=== PATIENT | female | born 1945 | race Caucasian/White ===

== ENCOUNTER → 2017-06-13 15:40 | Outpatient (CLI) | payer MEDICARE, SELFPAY ==
[2017-06-13 17:00] LABS: Hemoglobin A1c 6.4 % (4.2-6.3)
== END ==
PROVIDERS: Family Provider Student in an Organized Health Care Education/Training Program; PCP Student in an Organized Health Care Education/Training Program; Visit Provider Student in an Organized Health Care Education/Training Program
DX: Z79.899 Other long term (current) drug therapy (principal)
CPT/HCPCS: 83036

== ENCOUNTER → 2017-12-15 14:49 | Outpatient (CLI) | payer MEDICARE, SELFPAY ==
[2017-12-15 15:55] LABS: Hemoglobin A1c 6.1 % (4.2-6.3)
[2017-12-15 15:59] LABS: Anion Gap 7 (5-15); BUN 13 mg/dL (7-18); BUN/Creat Ratio 18.5 RATIO (10-20); Calcium,Total 9.4 mg/dL (8.5-10.1); Chloride 109 mmol/L (98-107); Cholesterol 246 mg/dL (200); EST Glomerular Filtration Rate 87 mL/min (>60); Est Glom Filt Rate - Afr Amer 106 mL/min (>60); Glucose 94 mg/dL (74-106); High Density Lipoprotein 54 mg/dL; Sodium Level 142 mmol/L (136-145); Thyroid Stim Hormone (TSH) 1.24 uIU/mL (0.358-3.74); Triglycerides 230 mg/dL; Very Low Density Lipoprotein 46 mg/dL (5-40)
[2017-12-15 16:08] LABS: Microalbumin,Random Urine < 5.0 mg/L (NO RANGE EST.)
== END ==
PROVIDERS: Family Provider Student in an Organized Health Care Education/Training Program; PCP Student in an Organized Health Care Education/Training Program; Visit Provider Student in an Organized Health Care Education/Training Program
DX: Z79.899 Other long term (current) drug therapy (principal)
CPT/HCPCS: 80048; 80061; 82043; 82570; 83036; 84443

== ENCOUNTER → 2018-09-13 15:46 | Outpatient (CLI) | payer MEDICARE, SELFPAY ==
[2018-09-13 16:45] LABS: Hematocrit 40.1 % (37-47); Hemoglobin 13.2 g/dl (12.0-15.0); Mean Corp Hgb Conc 32.9 g/gl (32-36); Mean Corpuscular Hgb 31.4 pg (27.0-32.0); Mean Corpuscular Volume 95.5 fL (81-99); Mean Platelet Vol. 11.3 fl (6.2-12.0); Platelet Count 281 K/mm3 (150-450); RBC Distribution Width SD 48.9 fl (35.1-43.9); White Blood Count 7.9 K/mm3 (4.4-11.0)
[2018-09-13 16:54] LABS: Scan Indicated on CBC? Y/N NO
== END ==
PROVIDERS: Family Provider Student in an Organized Health Care Education/Training Program; PCP Student in an Organized Health Care Education/Training Program; Referring Provider Student in an Organized Health Care Education/Training Program; Visit Provider Student in an Organized Health Care Education/Training Program
DX: E11.9 Type 2 diabetes mellitus without complications (principal)
CPT/HCPCS: 85027

== ENCOUNTER → 2019-11-20 18:08 | Outpatient (CLI) | payer MEDICARE, SELFPAY | PROVIDERS: PCP Student in an Organized Health Care Education/Training Program; Referring Provider Nurse Practitioner Family; Visit Provider Nurse Practitioner Family | DX: Z20.828 Contact with and (suspected) exposure to other viral communicable diseases (principal) | CPT/HCPCS: 87635; 94799; U0003 ==

== ENCOUNTER → 2020-04-30 | Outpatient (CLI) | payer MEDICARE, SELFPAY ==
[2020-04-30 15:07] LABS: Absolute Lymphocyte Count 1.67 X10^3/uL (0.83-4.51); Basophil# 0.06 X10^3/uL; Basophil% 0.6 % (0-1); Eosinophils% 0.9 % (0-5); Hematocrit 41.5 % (37-47); Hemoglobin 13.5 g/dL (12.0-15.0); Lymphocyte # 1.67 X10^3/ul (4.0); Lymphocyte % 15.7 % (19-41); Mean Corp Hgb Conc 32.5 g/dL (32-36); Mean Corpuscular Hgb 30.1 pg (27.0-32.0); Mean Corpuscular Volume 92.6 fL (81-99); Mean Platelet Vol. 11.1 fl (6.2-12.0); Monocyte# 0.77 X10^3/uL; Monocyte% 7.2 % (0-10); NRBC Flagged by Analyzer 0 % (0-5); Neutrophil # 7.99 X10^3/uL (2.7-7.7); Neutrophil % 75.1 % (47-70); Platelet Count 286 K/mm3 (150-450); RBC Distribution Width CV 15.3 % (11.6-14.6); RBC Distribution Width SD 52.4 fl (35.1-43.9); Red Blood Count 4.48 M/mm3 (4.2-5.4); White Blood Count 10.6 K/mm3 (4.4-11.0)
[2020-04-30 15:18] LABS: Hemoglobin A1c 6.3 % (3.8-5.6)
[2020-04-30 15:19] LABS: AST(SGOT) 13 U/L (15-37); Alanine Aminotransfer ALT/SGPT 27 U/L (13-56); Albumin, Serum 3.8 g/dL (3.2-5.0); Alkaline Phosphatase 109 U/L (45-117); Anion Gap 4 (5-15); BUN 13 mg/dL (7-18); BUN/Creat Ratio 18.5 RATIO (10-20); Calcium,Total 9.8 mg/dL (8.5-10.1); Chloride 109 mmol/L (98-107); Cholesterol 245 mg/dL (200); EST Glomerular Filtration Rate 86 mL/min (>60); Est Glom Filt Rate - Afr Amer 105 mL/min (>60); Globulin 3.7 g/dL (2.2-4.2); Glucose 101 mg/dL (74-106); High Density Lipoprotein 57 mg/dL; Potassium 3.9 mmol/L (3.5-5.1); Protein, Total 7.5 g/dL (6.4-8.2); Sodium Level 140 mmol/L (136-145); Thyroid Stim Hormone (TSH) 2.13 uIU/mL (0.358-3.74); Triglycerides 305 mg/dL; Very Low Density Lipoprotein 61 mg/dL (5-40)
[2020-04-30 15:23] LABS: Microalbumin,Random Urine 14.4 mg/L (NO RANGE EST.); Microalbumin:Creatinine Ratio 17.5 mg/g CRE (<30 mg/g CRE)
== END | disposition home or self-care (01) ==
LOC: LABSPEC 14:22
PROVIDERS: PCP Student in an Organized Health Care Education/Training Program; Visit Provider Nurse Practitioner Family
DX: E11.9 Type 2 diabetes mellitus without complications (principal); I10 Essential (primary) hypertension; E78.49 Other hyperlipidemia; Z79.4 Long term (current) use of insulin; Z13.29 Encounter for screening for other suspected endocrine disorder
CPT/HCPCS: 80053; 80061; 82043; 82570; 83036; 84443; 85025

== ENCOUNTER 2020-06-19 06:40 | Outpatient (RCR) | payer MEDICARE, SELFPAY ==
[2020-06-19] MEDS: COVID-19 VACC, MRNA(PFIZER)/PF 30 MCG/0.3 ML SYRINGE IM (15:59)
[2020-07-10] MEDS: COVID-19 VACC, MRNA(PFIZER)/PF 30 MCG/0.3 ML SYRINGE IM (15:49)
== END 2020-09-16 23:59 ==
LOC: IMMUN 06:40
PROVIDERS: PCP Student in an Organized Health Care Education/Training Program; Referring Provider Family Medicine; Visit Provider Family Medicine
DX: Z23 Encounter for immunization (principal)
CPT/HCPCS: 0001A; 0002A; 91300

== ENCOUNTER 2023-04-15 08:56 | Outpatient (CLI) | payer MEDICARE, SELFPAY ==
[2023-04-15] VITALS (7 sets, daily range): BP systolic 109–123; BP diastolic 50–64; PULSE 67–76; RESP 16; TEMP 36–36.9; O2SAT 99–100; BMI 24.2
[2023-04-15] MEDS: Acetaminophen 500 MG Tablet 1000 MG PO (09:15)
[2023-04-15] MEDS: DiphenhydrAMINE 25 MG Capsule PO (09:15)
[2023-04-15] MEDS: 0.9% NaCl Peripheral Flush Adult/Peds IV (09:39)
[2023-04-15] MEDS: 0.9% Normal Saline (500mL Bag) 500 ML 15 ML IV (09:40)
== END 2023-04-15 08:57 | disposition home or self-care (01) ==
LOC: MEDOUTP 08:58
PROVIDERS: PCP Student in an Organized Health Care Education/Training Program; Referring Provider Nurse Practitioner Family; Visit Provider Nurse Practitioner Family
DX: R06.02 Shortness of breath (principal); D64.9 Anemia, unspecified; R79.89 Other specified abnormal findings of blood chemistry; E83.19 Other disorders of iron metabolism
CPT/HCPCS: 36430; 86850; 86900; 86901; 86920; 86922; J7040; P9016; A4216

== ENCOUNTER 2024-02-18 00:23 | Emergency (ER) | payer MEDICARE, SELFPAY ==
[2024-02-18] VITALS (13 sets, daily range): BP systolic 117–152; BP diastolic 57–102; PULSE 63–722; RESP 14–22; TEMP 35.9–36.7; O2SAT 94–99; BMI 22.9
[2024-02-18 00:45] LABS: Absolute Lymphocyte Count 1.65 X10^3/uL (0.83-4.51); Basophil# 0.05 X10^3/uL; Basophil% 0.6 % (0-1); Eosinophil# 0.14 X10^3/uL; Eosinophils% 1.5 % (0-5); Hematocrit 19.8 % (37-47); Lymphocyte # 1.65 X10^3/ul (0.83-4.51); Lymphocyte % 18.2 % (19-41); Mean Corp Hgb Conc 29.3 g/dL (32-36); Mean Corpuscular Hgb 27.9 pg (27.0-32.0); Mean Corpuscular Volume 95.2 fL (81-99); Mean Platelet Vol. 10.9 fl (6.2-12.0); Monocyte# 0.93 X10^3/uL; Monocyte% 10.3 % (0-10); NRBC Flagged by Analyzer 4.2 % (0-5); Neutrophil % 66.1 % (47-70); POSITIVE COUNT YES; POSITIVE MORPHOLOGY YES; Platelet Count 255 K/mm3 (150-450); RBC Distribution Width CV 26.3 % (11.6-14.6); Red Blood Count 2.08 M/mm3 (4.2-5.4); White Blood Count 9.1 K/mm3 (4.4-11.0)
[2024-02-18 00:48] LABS: Differential Indicated SCAN CRITERIA MET
[2024-02-18 00:55] LABS: Prothrombin Time (Protime)PT. 13.5 SECONDS (11.7-14.9)
[2024-02-18 00:56] LABS: Partial Thromboplast Time 27.9 Seconds (24.1-36.2)
[2024-02-18 01:02] LABS: AST(SGOT) 16 U/L (15-37); Alanine Aminotransfer ALT/SGPT 21 U/L (13-56); Albumin, Serum 3.2 g/dL (3.2-5.0); Alkaline Phosphatase 105 U/L (45-117); Anion Gap 4 (5-15); BUN 16 mg/dL (7-18); Bilirubin, Direct 0.07 mg/dL (0.00-0.30); Calcium,Total 9.2 mg/dL (8.5-10.1); Chloride 114 mmol/L (98-107); EST Glomerular Filtration Rate 86 mL/min (>60); Est Glom Filt Rate - Afr Amer 105 mL/min (>60); Estimated Creatinine Clearance 54.26 ml/min; Globulin 3.1 g/dL (2.2-4.2); Glucose 102 mg/dL (74-106); Potassium 3.8 mmol/L (3.5-5.1); Protein, Total 6.3 g/dL (6.4-8.2); Sodium Level 143 mmol/L (136-145)
[2024-02-18 01:36] LABS: Hemoglobin 5.8 g/dL (12.0-15.0)
[2024-02-18] MEDS: 0.9% Normal Saline (500mL Bag) 500 ML 999 ML IV (01:37)
[2024-02-18] MEDS: Pantoprazole Sodium 80 MG in 0.9% Normal Saline (50mL Bag) 15 ML 420 MG IV BOLUS (01:37)
[2024-02-18 01:43] LABS: Anisocytosis 2+; Polychromasia 2+
[2024-02-18] MEDS: Pantoprazole Sodium 80 MG in 0.9% Normal Saline (100mL Bag) 80 ML 10 MG CONT INF (01:44)
[2024-02-20 14:31] LABS: Pathologist Review Reviewed
== END 2024-02-18 07:35 | disposition home or self-care (01) ==
PROVIDERS: Emergency Provider Emergency Medicine; PCP Student in an Organized Health Care Education/Training Program; Visit Provider Emergency Medicine
DX: K92.2 Gastrointestinal hemorrhage, unspecified (principal); I10 Essential (primary) hypertension; D62 Acute posthemorrhagic anemia; F17.210 Nicotine dependence, cigarettes, uncomplicated; K21.9 Gastro-esophageal reflux disease without esophagitis; Z79.02 Long term (current) use of antithrombotics/antiplatelets; Z79.82 Long term (current) use of aspirin
CPT/HCPCS: 74174; 80048; 80076; 82274; 85025; 85610; 85730; 86850; 86900; 86901; 86920; 96365; 96375; 99283; J7040; P9016; Q9967; A4216; J3490

== ENCOUNTER → 2024-02-29 | Outpatient (CLI) | payer MEDICARE, SELFPAY ==
[2024-02-29 15:50] LABS: Absolute Lymphocyte Count 1.43 X10^3/uL (0.83-4.51); Absolute Neutrophil Count 5.8 X10^3/uL (2.0-7.7); Basophil# 0.15 X10^3/uL; Basophil% 1.8 % (0-1); Eosinophil# 0.13 X10^3/uL; Eosinophils% 1.5 % (0-5); Hematocrit 28.5 % (37-47); Hemoglobin 8.6 g/dL (12.0-15.0); Lymphocyte # 1.43 X10^3/ul (0.83-4.51); Lymphocyte % 16.9 % (19-41); Mean Corp Hgb Conc 30.2 g/dL (32-36); Mean Corpuscular Hgb 27.8 pg (27.0-32.0); Mean Corpuscular Volume 92.2 fL (81-99); Mean Platelet Vol. 9.9 fl (6.2-12.0); Monocyte# 0.91 X10^3/uL; Monocyte% 10.8 % (0-10); NRBC Flagged by Analyzer 0 % (0-5); Neutrophil # 5.79 X10^3/uL (2.7-7.7); Neutrophil % 68.4 % (47-70); POSITIVE COUNT YES; POSITIVE MORPHOLOGY YES; Platelet Count 536 K/mm3 (150-450); RBC Distribution Width CV 20.7 % (11.6-14.6); RBC Distribution Width SD 68.3 fl (35.1-43.9); Red Blood Count 3.09 M/mm3 (4.2-5.4); White Blood Count 8.5 K/mm3 (4.4-11.0)
[2024-02-29 16:13] LABS: Differential Indicated SCAN CRITERIA MET; Iron 14 ug/dL (50-170); Iron Binding Capacity,Total 579 ug/dL (250-450); RET-HE 19.5 pg (30-35)
[2024-02-29 16:14] LABS: Immature Platelet Fraction 3.5 % (1.0-7.9)
[2024-02-29 16:25] LABS: Differential Comment SCANNED; Hypochromasia 1+
[2024-02-29 16:26] LABS: Anisocytosis 2+
[2024-02-29 16:27] LABS: Polychromasia RARE
== END | disposition home or self-care (01) ==
LOC: LAB 15:38
PROVIDERS: PCP Student in an Organized Health Care Education/Training Program; Referring Provider Nurse Practitioner Acute Care; Visit Provider Nurse Practitioner Acute Care
DX: D64.9 Anemia, unspecified (principal); R10.12 Left upper quadrant pain; K25.9 Gastric ulcer, unspecified as acute or chronic, without hemorrhage or perforation
CPT/HCPCS: 36415; 83540; 83550; 85025; 85045

== ENCOUNTER 2024-03-17 10:52 | Outpatient (CLI) | payer MEDICARE, SELFPAY ==
[2024-03-17 11:13] LABS: Absolute Neutrophil Count 5.4 X10^3/uL (2.0-7.7); Basophil# 0.06 X10^3/uL; Basophil% 0.8 % (0-1); Eosinophil# 0.11 X10^3/uL; Eosinophils% 1.5 % (0-5); Hematocrit 20.4 % (37-47); Lymphocyte % 14.8 % (19-41); Mean Corp Hgb Conc 28.4 g/dL (32-36); Mean Corpuscular Hgb 24.9 pg (27.0-32.0); Mean Corpuscular Volume 87.6 fL (81-99); Mean Platelet Vol. 11.3 fl (6.2-12.0); Monocyte# 0.73 X10^3/uL; Monocyte% 9.8 % (0-10); NRBC Flagged by Analyzer 0.4 % (0-5); Neutrophil # 5.39 X10^3/uL (2.7-7.7); Neutrophil % 72.7 % (47-70); POSITIVE COUNT YES; POSITIVE MORPHOLOGY YES; Platelet Count 261 K/mm3 (150-450); RBC Distribution Width CV 21.7 % (11.6-14.6); RBC Distribution Width SD 67.5 fl (35.1-43.9); Red Blood Count 2.33 M/mm3 (4.2-5.4); White Blood Count 7.4 K/mm3 (4.4-11.0)
[2024-03-17 11:29] LABS: Differential Indicated SCAN CRITERIA MET; Hemoglobin 5.8 g/dL (12.0-15.0)
[2024-03-17 12:07] LABS: Anisocytosis 2+; Differential Comment SCANNED; Hypochromasia 3+; Platelet Estimate ADEQUATE (ADEQ); Polychromasia 1+
[2024-03-17 12:08] LABS: Acanthocytes RARE; Microcytosis 2+; Ovalocyte 2+; Schistocytes RARE; Target Cells 1+
[2024-03-19 14:40] LABS: Pathologist Review Reviewed
== END 2024-03-17 23:59 | disposition home or self-care (01) ==
LOC: MEDOUTP 10:53
PROVIDERS: Nurse Practitioner Acute Care; PCP Student in an Organized Health Care Education/Training Program; Referring Provider Internal Medicine; Visit Provider Internal Medicine
DX: D64.9 Anemia, unspecified (principal)
CPT/HCPCS: 36415; 85025; 86850; 86900; 86901; 86920; 86922

== ENCOUNTER 2024-03-17 12:38 | Emergency (ER) | payer MEDICARE, SELFPAY ==
[2024-03-17] VITALS (12 sets, daily range): BP systolic 100–130; BP diastolic 61–96; PULSE 71–92; RESP 16–20; TEMP 33.3–36.9; O2SAT 97–100; BMI 23.2
--- NOTE | 2024-03-17 12:44 | EX.ED.DYSGE1 ---
HPI History of Present Illness Chief Complaint: Abn Labs [facility] Medical History no medical history Home Medications ?Medication ?Instructions ?Recorded ?Last Taken ?Type L.acidoph, paracasei,B. lactis 10 1 ea PO DAILY 07/27/15 Unknown History billion cell capsule clopidogrel 75 mg tablet 75 mg PO DAILY #30 TABLETS 07/28/15 Unknown Rx losartan 100 mg tablet (Cozaar) 100 mg PO DAILY 04/15/23 Unknown History metoprolol succinate 25 mg 25 mg PO DAILY 04/15/23 Unknown History tablet,extended release 24 hr sucralfate 1 gram tablet 1 g PO 4X/DAY 02/18/24 Unknown History pantoprazole 20 mg tablet,delayed 40 mg PO QHS 02/29/24 Unknown History release furosemide 20 mg tablet (Lasix) 20 mg PO DAILY 3 days #3 tabs 03/17/24 Unknown Rx Allergy/AdvReac Type Severity Reaction Status Date / Time No Known Allergies Allergy Verified 03/17/24 12:39 Social History Smoking Status: Light Smoker (<10/day) EXAM Physical Exam Const Vital Signs: 03/17/24 12:39 03/17/24 12:49 03/17/24 14:35 Temperature 92 F L Temperature Source Temporal Pulse Rate 92 84 Respiratory Rate 16 19 H Respiratory Effort Non-Labored Short of Breath Respiratory Pattern Normal Blood Pressure 130/65 H 112/96 H Blood Pressure Mean 86 101 Blood Pressure Source Pulse Ox 100 98 Oxygen Delivery Method Room Air Room Air 03/17/24 14:55 03/17/24 15:10 03/17/24 16:10 Temperature 98.1 F 98.2 F 98.5 F Temperature Source Oral Oral Oral Pulse Rate 82 79 84 Respiratory Rate 20 H 20 H 20 H Respiratory Effort Respiratory Pattern Blood Pressure 103/61 115/77 118/66 Blood Pressure Mean 75 89 83 Blood Pressure Source Monitor Monitor Monitor Pulse Ox 99 99 98 Oxygen Delivery Method Room Air Room Air Room Air 03/17/24 16:44 03/17/24 16:48 03/17/24 17:03 Temperature 98 F 98.2 F 98.2 F Temperature Source Oral Oral Oral Pulse Rate 90 82 71 Respiratory Rate 18 19 H 19 H Respiratory Effort Respiratory Pattern Blood Pressure 129/88 H 112/79 100/78 Blood Pressure Mean 101 90 85 Blood Pressure Source Monitor Monitor Pulse Ox 99 98 97 Oxygen Delivery Method Room Air Room Air 03/17/24 18:03 03/17/24 18:34 03/17/24 18:51 Temperature 98.3 F 98.3 F 98.2 F Temperature Source Oral Oral Pulse Rate 81 82 82 Respiratory Rate 20 H 19 H 18 Respiratory Effort Respiratory Pattern Blood Pressure 120/72 115/76 115/77 Blood Pressure Mean 88 89 89 Blood Pressure Source Monitor Pulse Ox 97 98 97 Oxygen Delivery Method Room Air Room Air [facility] [place] N[place] Medical decision making narrative: HISTORY OF PRESENT ILLNESS: 79-year-old female presents with concern for low hemoglobin. She does note shortness of breath. Denies syncope. Chest pain. Palpitations. Denies melena, hematochezia, hemoptysis, hematuria. REVIEW OF SYSTEMS: Pertinent positives: Low hemoglobin, shortness of breath, Pertinent negatives: Chest pain, syncope, melena, hematochezia, hemoptysis, hematemesis, hematuria PHYSICAL EXAM: Nursing triage notes reviewed, Vital signs reviewed Constitutional: please see [facility] HENT: MMM, mucosal pallor noted Eyes: Pupils equal round and reactive to light, Extraocular muscles intact Neck: No stridor, no JVD, full neck ROM Lungs: Clear to auscultation, No wheezing or rales. No increased work of breathing, no conversational dyspnea, no accessory muscle use, no nasal flaring. No respiratory distress noted Heart: Regular rate and rhythm, No murmurs, No rubs and No gallops, 2+ distal pulses (radial, femoral, posterior tibial) in all extremities Abdomen: Soft, there is no tenderness, rigidity, rebound or guarding, no obvious peritoneal signs, no palpable pulsatile abdominal masses, no auscultated abdominal bruit : No CVAT Extremities: No edema Neuro: No new focal neurological deficits, cranial nerves II through XII intact, 5/5 strength in all present extremities. Intact sensation to light touch in all present extremities, 2+ reflexes bilateral patella tendons. Skin: No rash or lesions noted skin pallor noted MEDICAL DECISION MAKING: Chief Complaint: Low hemoglobin External records reviewed: Laboratory studies reviewed. Hemoglobin from today shows hemoglobin 5.8, white blood cell count 7.4 plate count 261. Reviewed last GI note. Saw was evaluated by gastroenterology on February 29, 2024. Reviewed EGD study report from that time which showed multiple short ulceration of the entire stomach body and duodenal erosions and erythema. She is negative for H. pylori at that time. Reviewed CTA from 02/18/2024 shows no active GI bleeding. Factors affecting care: History of hypertension, GERD, peptic ulcer disease, anemia Social determinants of health: none History obtained from others: The patient's history Consults: Gastroenterology MDM Narrative: The patient was initially hemodynamically stable, afebrile and nontoxic-appearing. Exam without focal lung findings. Appears nonhypoxic. He did. Pale Given hemoglobin of 5.8 I ordered 2 units of blood. I also ordered additional labs images to further assess patient complaint of shortness of breath. While is likely secondary to anemia wanted to rule out signs of pneumonia, heart failure, arrhythmia, ACS or electrolyte disturbance. ALL IMAGES (IF OBTAINED) HAVE BEEN PERSONALLY REVIEWED AND INTERPRETED BY MYSELF. EKG with normal sinus rhythm rate of 85, left activation, no intervals, QTc of 437 no STEMI High-sensitivity troponin is negative, no evidence of myocardial ischemia CBC with marked anemia, no leukocytosis or thrombocytopenia noted BMP without evidence of significant electrolyte abnormalities, no anion gap, no acute kidney injury. Chest x-ray was read reviewed, interpreted by myself showed no evidence of pneumonia, pneumothorax, I do not see any significant volume overload. It was read by radiologist as interstitial edema. Given initial edema BNP was ordered. BNP was elevated slightly at 194. Given concern for additional volume overload I gave the patient 20 mg IV Lasix given were given her 2 units of blood. Patient did ambulate in ED without septic hypoxia. Will prescribe 3 days of Lasix for further diuresis. Do not suspect her symptoms are related to heart failure despite elevated BNP as she did not display symptoms of volume overload. I suspect her shortness of breath and dyspnea on exertion are related to severe anemia. Type and screen sent. I discussed case with the GI doctor on-call Dr. Stout. Spoke with Dr. Stout. He felt patient could be followed up promptly in the next 1 to 2 days. He will call his office to try to expedite an appointment. Encourage patient to call as well to assure appointment is available. He did not thing the patient to be admitted at this time. Recommended transfusing the patient with 2 units of blood and discharging. Patient was transfused 2 units of blood. Remained hemodynamically stable. She is appropriate discharge home. The patient and/or family, caregivers express understanding. The patient and/or family, caregivers agrees with the plan. Shared decision making: I will have a discussion with the patient and or visitors regarding risk/benefits of further testing or admission. They will be made aware of of the risk/benefits inherent in this decision they will be given the opportunity to voice understanding. Total critical care time today provided was at least 60 minutes. This excludes separately billable procedures. Critical care time (if documented) is secondary to the patient having high probability of clinically significant/life threatening deterioration in the patient's condition which required my urgent intervention. Impression: 1. Acute anemia 2. History of anemia 3. History of antiplatelet therapy Dispo: Discharge home This note was generated with [employer] dictation software. It may contain incorrect words, spelling, and punctuation that were not noted in review of the chart prior to signing. Lab Data Labs: Laboratory Results - last 24 hr 03/17/24 13:09 WBC 7.5 RBC 2.36 L Hgb 5.9 L* Hct 20.7 L MCV 87.7 MCH 25.0 L MCHC 28.5 L RDW Std Deviation 67.0 H RDW Coeff of Amada 21.6 H Plt Count 252 MPV 11.4 Immature Gran % (Auto) 0.700 Neut % (Auto) 75.3 H Lymph % (Auto) 14.2 L [place] % (Auto) 8.2 Eos % (Auto) 0.9 Baso % (Auto) 0.7 Absolute Neuts (auto) 5.6 Absolute Lymphs (auto) 1.06 Nucleated RBC % 0.3 Differential Comment SCANNED Diff Path Review May foll Platelet Estimate ADEQUATE Polychromasia 1+ Hypochromasia 3+ Anisocytosis 2+ Microcytosis 2+ Target Cells RARE Tear Drop Cells 1+ Ovalocytes 2+ Acanthocytes (Spur) RARE Sodium 140 Potassium 3.8 Chloride 111 H Carbon Dioxide 26.0 Anion Gap 4 L BUN 18 Creatinine 0.83 Estim Creat Clear Calc 52.29 Est GFR (MDRD) Af Amer 86 Est GFR (MDRD) Non-Af 71 BUN/Creatinine Ratio 21.8 H Glucose 111 H Calcium 9.6 Troponin I High Sens < 3 L B-Natriuretic Peptide 194.4 H Blood Type O NEGATIVE Antibody Screen NEGATIVE Crossmatch See Detail Radiography Diagnostic Testing: Clinical Impression(s) from Imaging Studies Chest X-Ray 03/17/24 13:20 IMPRESSION: Mild pulmonary venous congestion. Electronically Signed: Messi Blank MD at 14:49 EST , Discharge Plan Triage Chief Complaint: Abn Labs ED Provider: Jose Angel Winkler Dx/Rx/DC Orders Clinical Impression: Anemia Instructions: ED Anemia, Type Not Specified (Adult) Prescriptions: New furosemide [Lasix] 20 mg tablet 20 mg PO DAILY 3 Days Qty: 3 0RF No Action pantoprazole 20 mg tablet,delayed release (DR/EC) 40 mg PO QHS L.acidoph, paracasei,B. lactis 1 EACH capsule 1 ea PO DAILY Patient Comments: STOMACH clopidogrel 75 MG tablet 75 mg PO DAILY Qty: 30 2RF losartan [Cozaar] 100 mg tablet 100 mg PO DAILY metoprolol succinate 25 mg tablet extended release 24 hr 25 mg PO DAILY sucralfate 1 gram tablet 1 g PO 4X/DAY Primary Care Provider: Hitesh Melton Referrals: Hitesh Melton MD [Primary Care Provider] - Activity Restrictions/Additional Instructions: Thank you for trusting us with your care today! You been diagnosed with anemia. Is likely coming from your GI tract. You need an endoscopy. I did speak with Dr. Stout who encouraged her to follow with his office on Tuesday or Tuesday. Please call his office Tuesday to assess status of appointment and get more accurate scheduling information. Please hold Plavix until you follow-up with Dr. Stout. There was some signs in your x-ray of increased fluid on your lungs. Please take prescribed Lasix daily for next 3 days. This will increase your urination which will limit fluid from your lungs. Please return to the emergency department if your symptoms change or worsen. Specifically develop worsening shortness of breath, heavy bleeding, if you lose consciousness. Please follow with gastroenterology (Dr. Stout) for further outpatient evaluation and management. Please call his office Tuesday to ascertain the time and place for your expedited appointment Print Language: Uzbek Disposition Disposition: Home, Self Care Discharge Date/Time: 03/17/24 18:51
--- NOTE | 2024-03-17 13:03 | EKG12_ITS ---
Test Reason : GENERAL Blood Pressure : */* mmHG Vent. Rate : 85 BPM Atrial Rate : 85 BPM P-R Int : 156 ms QRS Dur : 84 ms QT Int : 368 ms P-R-T Axes : 48 -15 20 degrees QTcB Int : 437 ms Normal sinus rhythm Normal ECG Confirmed by Jeremy Dozier [id number]), design editor MICHELLE COLLINS ([id number]) on 03/19/2024 6:58:39 AM Referred By: Confirmed By: Jeremy Dozier
--- NOTE | 2024-03-17 13:15 | ED.RN ---
Patient given warm blanket and socks per request
--- NOTE | 2024-03-17 13:20 | RAD_ITS ---
INDICATION: SOB EXAMINATION/TECHNIQUE: X-RAY - XR Chest 1 View COMPARISON: No relevant prior comparison study available FINDINGS: LINES/DEVICES: None. LUNGS: Mild prominence of the pulmonary vasculature. No focal infiltrate is seen. No evidence of pleural effusions. MEDIASTINUM AND CARDIOVASCULAR STRUCTURES: Cardiac silhouette not enlarged. Central airways and mediastinal contour are unremarkable. BONES AND SOFT TISSUES: Unremarkable. RAD/Chest 1 View (Portable) IMPRESSION: Mild pulmonary venous congestion. Electronically Signed: Messi Blank MD at 14:49 EST ,
[2024-03-17 13:24] LABS: Absolute Lymphocyte Count 1.06 X10^3/uL (0.83-4.51); Absolute Neutrophil Count 5.6 X10^3/uL (2.0-7.7); Basophil# 0.05 X10^3/uL; Basophil% 0.7 % (0-1); Eosinophil# 0.07 X10^3/uL; Eosinophils% 0.9 % (0-5); Hematocrit 20.7 % (37-47); Lymphocyte # 1.06 X10^3/ul (0.83-4.51); Lymphocyte % 14.2 % (19-41); Mean Corp Hgb Conc 28.5 g/dL (32-36); Mean Corpuscular Volume 87.7 fL (81-99); Mean Platelet Vol. 11.4 fl (6.2-12.0); Monocyte# 0.61 X10^3/uL; Monocyte% 8.2 % (0-10); NRBC Flagged by Analyzer 0.3 % (0-5); Neutrophil # 5.62 X10^3/uL (2.7-7.7); Neutrophil % 75.3 % (47-70); POSITIVE COUNT YES; POSITIVE MORPHOLOGY YES; Platelet Count 252 K/mm3 (150-450); RBC Distribution Width CV 21.6 % (11.6-14.6); Red Blood Count 2.36 M/mm3 (4.2-5.4); White Blood Count 7.5 K/mm3 (4.4-11.0)
[2024-03-17 13:26] LABS: Differential Indicated SCAN CRITERIA MET; Hemoglobin 5.9 g/dL (12.0-15.0)
[2024-03-17 13:40] LABS: Anion Gap 4 (5-15); BUN 18 mg/dL (7-18); BUN/Creat Ratio 21.8 RATIO (10-20); Calcium,Total 9.6 mg/dL (8.5-10.1); Chloride 111 mmol/L (98-107); Creatinine, Serum 0.83 mg/dL (0.55-1.02); EST Glomerular Filtration Rate 71 mL/min (>60); Est Glom Filt Rate - Afr Amer 86 mL/min (>60); Estimated Creatinine Clearance 52.29 ml/min; Glucose 111 mg/dL (74-106); Potassium 3.8 mmol/L (3.5-5.1); Sodium Level 140 mmol/L (136-145); Troponin-I HS < 3 pg/mL (3.0-54.0)
[2024-03-17 13:57] LABS: Differential Comment SCANNED; Platelet Estimate ADEQUATE (ADEQ)
[2024-03-17 13:58] LABS: Acanthocytes RARE; Anisocytosis 2+; Hypochromasia 3+; Microcytosis 2+; Ovalocyte 2+; Polychromasia 1+
[2024-03-17 13:59] LABS: Target Cells RARE; Tear Drop Cell 1+
[2024-03-17 15:39] LABS: BNP,B-Type NATRIURETIC PEPTIDE 194.4 pg/mL (0-100)
[2024-03-17] MEDS: Furosemide 20 MG/2 ML VIAL IV (16:10)
[2024-03-19 14:40] LABS: Pathologist Review Reviewed
== END 2024-03-17 18:51 | disposition home or self-care (01) ==
PROVIDERS: Emergency Provider Emergency Medicine; PCP Internal Medicine; Visit Provider Emergency Medicine
DX: D64.9 Anemia, unspecified (principal); I10 Essential (primary) hypertension; R00.2 Palpitations; R06.02 Shortness of breath; F17.200 Nicotine dependence, unspecified, uncomplicated
CPT/HCPCS: 36430; 71045; 80048; 83880; 84484; 85025; 86850; 86900; 86901; 86920; 86922; 93005; 99284; P9016; J1940

== ENCOUNTER → 2024-03-20 | Outpatient (CLI) | payer MEDICARE, SELFPAY ==
[2024-03-20 14:12] LABS: Absolute Lymphocyte Count 1.11 X10^3/uL (0.83-4.51); Absolute Neutrophil Count 6.4 X10^3/uL (2.0-7.7); Basophil# 0.06 X10^3/uL; Basophil% 0.7 % (0-1); Eosinophil# 0.08 X10^3/uL; Eosinophils% 0.9 % (0-5); Hematocrit 27.5 % (37-47); Hemoglobin 8.4 g/dL (12.0-15.0); Lymphocyte # 1.11 X10^3/ul (0.83-4.51); Lymphocyte % 13.1 % (19-41); Mean Corp Hgb Conc 30.5 g/dL (32-36); Mean Corpuscular Hgb 26.3 pg (27.0-32.0); Mean Corpuscular Volume 86.2 fL (81-99); Mean Platelet Vol. 12.3 fl (6.2-12.0); Monocyte% 9.5 % (0-10); NRBC Flagged by Analyzer 0 % (0-5); Neutrophil # 6.36 X10^3/uL (2.7-7.7); Neutrophil % 75.2 % (47-70); POSITIVE MORPHOLOGY YES; Platelet Count 245 K/mm3 (150-450); RBC Distribution Width CV 20.8 % (11.6-14.6); RBC Distribution Width SD 61.6 fl (35.1-43.9); Red Blood Count 3.19 M/mm3 (4.2-5.4); White Blood Count 8.5 K/mm3 (4.4-11.0)
[2024-03-20 14:14] LABS: Differential Indicated SCAN CRITERIA MET
[2024-03-20 14:39] LABS: Anisocytosis 2+; Hypochromasia 1+
== END | disposition home or self-care (01) ==
PROVIDERS: PCP Internal Medicine; Referring Provider Nurse Practitioner Acute Care; Visit Provider Nurse Practitioner Acute Care
DX: D64.9 Anemia, unspecified (principal)
CPT/HCPCS: 36415; 85025

== ENCOUNTER 2024-03-23 05:23 | Day surgery (SDC) | payer MEDICARE, SELFPAY ==
[2024-03-23] VITALS (10 sets, daily range): BP systolic 80–136; BP diastolic 50–104; PULSE 59–87; RESP 14–18; TEMP 36.3–36.7; O2SAT 92–99; BMI 22.4
--- NOTE | 2024-03-23 06:30 | IMM_PTH ---
PATIENT: SILVINA NELSON LOC: EN U#:[id number] AGE/SX: 79/F ROOM: RE03/23/[address]: Dr. Roby Stout DO : 1945 BED: DIS: 03/23/2024 SPEC #: [id number] RECD: 03/23/24 12:01 STATUS: DANUTA REQ #: [id number] ANDREW: 03/23/24 06:[address]: Roby Stout DEPT: IMMUNOHISTOCHEMISTRY RECD BY: Kobi Ch ENTERED: 03/23/24 12:01 SP TYPE: IMMUNO OTHR DR: Dr. Hitesh Melton MD Tissues: B - Gastric mucous membrane Procedures: H Pylori (initial) [facility]YSIC[facility] INSTIT[facility] [address] [address] SPECIMEN INFORMATION: Tissue Source: B- Gastric ulcer biopsy Clinical Info: Anemia, left upper quadrant pain, gastric ulcer Specimen Number: [id number] CPT code: 05535 METHODOLOGY: Deparaffinized sections of prefer/formalin-fixed tissue or PAP/DQ stained slides are incubated with monoclonal/polyclonal antibodies/oligonucleotide probes. Localization is made via biotin free immunoperoxidase method. Appropriate controls are performed and reacted as expected. Results on target cell population are indicated in the following table: RESULTS: ANTIBODY / CLONE RESULT Block B H Pylori (polyclonal) negative These tests were developed and their performance characteristics determined by [facility]. They may not have been cleared or approved by the U.S. Food and Drug Administration. The FDA has determined that such clearance or approval is not necessary. The above immunohistochemical/dualISH markers are ordered and reviewed by the Pathologist. INTERPRETATION: B. Gastric ulcer, biopsy: Negative for Helicobacter pylori organisms. 03/26/2024
--- NOTE | 2024-03-23 06:30 | EGD_PTH ---
PATIENT: SILVINA NELSON LOC: EN U#:[id number] AGE/SX: 79/F ROOM: RE03/23/[address]: Dr. Roby Stout DO : 1945 BED: DIS: 03/23/2024 SPEC #: [id number] RECD: 03/23/24 10:43 STATUS: DANUTA REOlu #: [id number] ANDREW: 03/23/24 06:[address]: Roby Stout DEPT: SURGICAL PATHOLOGY RECD BY: Radha Melo ENTERED: 03/23/24 12:09 SP TYPE: EGD BIOPSY SIS DR: Dr. Hitesh Melton MD Tissues: A - Duodenum, NOS B - Gastric mucous membrane Procedures: Surgery Specimen Level IV HEADER OPERATION: EGD with biopsies PRE-OP DIAGNOSIS: Anemia, left upper qaudrant pain, gastric ulcer TISSUE SUBMITTED: A- Duodenum biopsy, B- Gastric ulcer biopsy MICROSCOPIC DIAGNOSIS A. Duodenum, biopsy: Fragments of duodenal mucosa with mild non-specific chronic inflammation. B. Gastric ulcer, biopsy: Fragments of gastric mucosa with superficial erosion, acute and chronic inflammation. See comment. 03/26/2024 COMMENT B. The results of immunohistochemistry for Helicobacter pylori will be reported separately ([id number]). MICROSCOPIC DESCRIPTION Slides are reviewed. GROSS DESCRIPTION A. Received in fixative is one container labeled with the patient's name and designated Duodenum biopsy. The specimen consists of multiple irregular fragments of meyer soft tissue that in aggregate measure 4.0mm. The specimen is totally submitted in one cassette. B. Received in fixative is one container labeled with the patient's name and designated Gastric ulcer biopsy. The specimen consists of multiple irregular fragments of meyer soft tissue that in aggregate measure 5.0mm. The specimen is totally submitted in one cassette. GLENIS. 03/23/2024 TC:3 CPT:02231h9
--- NOTE | 2024-03-23 06:30 | PCM.PRE.AN2 ---
ASA Classification* ASA Classification ASA Classification: 2 Assessment & Plan Anesthesia* Anesthesia Assessment Anesthesia Assessment: Discussed sedation and/or anesthesia options, risks, benefits, and alternatives with patient/parents/legal guardian/POA. Questions invited. The patient/parents/legal guardian/POA seems to understand and agrees to proceed with anesthesia plan. Reviewed the physical assessment, medical history, allergy history and patient home medications list prior to surgery/procedure/anesthetic and documented any changes. Performed airway and anesthesia risk assessments. Anesthesia Type Anesthesia Type: MAC History Source History Obtained from:: Patient and Chart Anesthesia Focused Assessment* Temperature: 97.5 F Pulse Rate: 87 Blood Pressure: 121/76 Respiratory Rate: 18 Pulse Ox: 99 Airway Assessment Mouth opens: >3 cm Mallampati Score: II Neck Range of motion (ROM): Full ROM Focused Labs Anesthesia Preop lab: CBC WBC 8.5 K/mm3 (4.4-11.0) 03/20/24 14:01 RBC 3.19 M/mm3 (4.2-5.4) L 03/20/24 14:01 Hgb 8.4 g/dL (12.0-15.0) L 03/20/24 14:01 Hct 27.5 % (37-47) L 03/20/24 14:01 Plt Count 245 K/mm3 (150-450) 03/20/24 14:01 CHEMISTRY Potassium 3.8 mmol/L (3.5-5.1) 03/17/24 13:09 Sodium 140 mmol/L (136-145) 03/17/24 13:09 Magnesium 2.0 mg/dL (1.8-2.4) 07/28/15 02:30 BUN 18 mg/dL (7-18) 03/17/24 13:09 Creatinine 0.83 mg/dL (0.55-1.02) 03/17/24 13:09 Glucose 111 mg/dL (74-106) H 03/17/24 13:09 TSH 2.13 uIU/mL (0.358-3.74) 04/30/20 13:00 COAG PT 13.5 SECONDS (11.7-14.9) 02/18/24 00:37 Pre-Assessment Diagnosis/Proposed Procedure Planned Operative Procedure(s): EGD Anesthesia History 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 When Was Last Pacemaker Check QUESTION #4 FULL TEXT: You/Your Family Experience fever (hyperthermia) with Anesthesia Last Oral Intake Last Oral intake: Last Oral Intake NPO since Meds taken in AM with sips of No 03/23/24 05:46 water? 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 Female Yes 03/20/24 10:37 HX of Motion Sickness No 03/20/24 10:37 HX of N/V After Surgery No 03/20/24 10:37 Non-Smoker No 03/20/24 10:37 Duration of Surgery greater No 03/20/24 10:37 than 60 minutes Number of Risk Factors 1 03/20/24 10:37 PONV Score Low Risk 03/20/24 10:37 Height & Weight Height & Weight: Anesthesia: Height & Weight Height 5 ft 6 in 03/23/24 05:46 Weight: 63 kg 03/23/24 05:46 Body Mass Index (BMI) 22.4 03/23/24 05:46 Respiratory Assessment Respiratory Assessment - fabric coating supervisor: Respiratory Tract Infection Hx - fabric coating supervisor Hx Respiratory Tract Infection No 03/20/24 10:37 STOP Sleep Apnea STOP Sleep Apnea - fabric coating supervisor: STOP Sleep Apnea - fabric coating supervisor Hx Hypertension Yes 03/20/24 10:37 Hx Sleep Apnea No 03/20/24 10:37 CPAP BIPAP Do you snore loudly (louder No 03/20/24 10:37 than talking or can be heard Do you often feel tired/ No 03/20/24 10:37 fatigued/ sleepy during daytime? Has anyone observed you stop No 03/20/24 10:37 breathing during sleep? STOP Results Negative 03/20/24 10:37 QUESTION #5 FULL TEXT : Do you snore loudly (louder than talking or can be heard through closed doors)? 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 Specify any problems Hx of Preganancy in last 3 No 03/20/24 10:37 Months Nurse Filling Out Transfusion [facility] 03/20/24 10:37 & Questions: Date: 03/20/24 03/20/24 10:37 Time: 10:40 03/20/24 10:37 Patient unable to answer at this time (ie. confused, unrespo /Reproduction History /Reproductive History - fabric coating supervisor: /Reproductive Hx- fabric coating supervisor Hx Now No 03/20/24 10:37 Gestational Age (in weeks): EDC: Hx Hx Para Hx Section SAB PFSH Medical History Neck pain Wears glasses Anxiety Arthritis Leg cramps Restless legs TIA (transient ischemic attack) History of ulceration History of GI bleed Smoker Shortness of breath on exertion History of pain when walking History of echocardiogram Home Medications ?Medication ?Instructions ?Recorded ?Last Taken ?Type L.acidoph,paracasei,B.animalis 10 1 ea PO DAILY 07/27/15 Unknown History billion cell capsule clopidogrel 75 mg tablet 75 mg PO DAILY #30 TABLETS 07/28/15 03/17/24 Rx losartan 100 mg tablet (Cozaar) 100 mg PO DAILY 04/15/23 03/22/24 History metoprolol succinate 25 mg 25 mg PO DAILY 04/15/23 03/22/24 History tablet,extended release 24 hr sucralfate 1 gram tablet 1 g PO TID 02/18/24 Unknown History pantoprazole 20 mg tablet,delayed 40 mg PO QHS 02/29/24 Unknown History release furosemide 20 mg tablet (Lasix) 20 mg PO DAILY 3 days #3 tabs 03/17/24 Unknown Rx cholecalciferol (vitamin D3) 125 125 mcg PO DAILY 03/20/24 Unknown History mcg (5,000 unit) tablet (Vitamin D3) vitamin B12 1,000 mcg-folic acid 1 flaco sublingual DAILY 03/20/24 Unknown History 400 mcg sublingual lozenge Allergy/AdvReac Type Severity Reaction Status Date / Time No Known Allergies Allergy Verified 03/23/24 05:41 Surgical History (Updated 03/20/24 @ 10:51 by Fouzia Hawkins) History of colonoscopy History of esophagogastroduodenoscopy (EGD) Social History Smoking Status: Light Smoker (<10/day) Review of Systems (Anesthesia) ROS Narrative System reviewed and no additional complaints, except as documented.
--- NOTE | 2024-03-23 06:42 | PCM.HP.STD ---
HPI - General General Date of Admission: 03/23/24 Date of Service: 03/23/24 Chief Complaint: Anemia HPI Narrative SILVINA NELSON, is a 79 F who [id number] female presents for consultation. She was seen in the ED on 02/18/2024 for HGB of 5.8 with c/o fatigue. She reported dark colored stools in ED and takes Fe daily. She was transfused 2u PRBC and CTA was negative for cause of bleeding. She reports a history of GIB secondary to . She declined admission and was discharged with recommendation to hold plavix. She denies taking ASA and reports she did not hold plavix as recommended. EGD (multiple shallow ulcerations entire stomach body, duodenal erosions and erythema) & COLON (diverticulosis) (Tavia) biopsies negative H. pylori LABS 02/18/2024 HGB 5.8 12/21/223 HGB 12.1 PLAVIX, PANTOPRAZOLE 40MG QD, CARAFATE 1G TID Abdomen/Pelvis CTA 02/18/24 00:50 IMPRESSION: 1. No active gastrointestinal bleeding or other acute findings identified on this CTA exam. CTA can be insensitive for identifying some gastrointestinal bleeds, consider follow-up with nuclear medicine tagged RBC scan or endoscopy if clinically indicated. 2. Multiple partially calcified uterine fibroids measuring up to 2.7 cm. 3. There is an irregularly enhancing, indeterminate left adrenal mass measuring 2.5 cm with Hounsfield units of 87 on this postcontrast exam. ACR White Paper guidelines (Donald et al. JACR 2017; 14(8):6241-9295) suggest a low dose, non-contrast adrenal CT or chemical-shift adrenal MRI follow-up study. Consider follow-up biochemical evaluation and/or endocrine consult to assess for biochemically functional versus nonfunctional lesion. [facility] Medical History Neck pain Wears glasses Anxiety Arthritis Leg cramps Restless legs TIA (transient ischemic attack) History of ulceration History of GI bleed Smoker Shortness of breath on exertion History of pain when walking History of echocardiogram Home Medications ?Medication ?Instructions ?Recorded ?Last Taken ?Type L.acidoph,paracasei,B.animalis 10 1 ea PO DAILY 07/27/15 Unknown History billion cell capsule clopidogrel 75 mg tablet 75 mg PO DAILY #30 TABLETS 07/28/15 03/17/24 Rx losartan 100 mg tablet (Cozaar) 100 mg PO DAILY 04/15/23 03/22/24 History metoprolol succinate 25 mg 25 mg PO DAILY 04/15/23 03/22/24 History tablet,extended release 24 hr sucralfate 1 gram tablet 1 g PO TID 02/18/24 Unknown History pantoprazole 20 mg tablet,delayed 40 mg PO QHS 02/29/24 Unknown History release furosemide 20 mg tablet (Lasix) 20 mg PO DAILY 3 days #3 tabs 03/17/24 Unknown Rx cholecalciferol (vitamin D3) 125 125 mcg PO DAILY 03/20/24 Unknown History mcg (5,000 unit) tablet (Vitamin D3) vitamin B12 1,000 mcg-folic acid 1 flaco sublingual DAILY 03/20/24 Unknown History 400 mcg sublingual lozenge Allergy/AdvReac Type Severity Reaction Status Date / Time No Known Allergies Allergy Verified 03/23/24 05:41 Surgical History History of colonoscopy History of esophagogastroduodenoscopy (EGD) Social History Smoking Status: Light Smoker (<10/day) ROS Constitutional Constitutional: Denies fatigue, fever(s), poor appetite, weight gain or weight loss Gastrointestinal Gastrointestinal: Denies belching, bloating, change in bowel habits, change in stool character, chewing difficulty, coffee ground emesis, constipation, cramping, diarrhea, dyspepsia, dysphagia, early satiety, excessive flatus, fecal incontinence, heartburn, hematemesis, hematochezia, hemorrhoids, loose stools, melena, nausea, odynophagia, rectal bleeding, tenesmus, vomiting or weight changes Vital Signs Vital Signs Vital Signs: 03/23/24 05:46 03/23/24 05:46 03/23/24 06:31 Temperature 97.5 F L 97.5 F L Temperature Source Temporal Pulse Rate 87 87 Respiratory Rate 18 18 Respiratory Pattern Normal Blood Pressure 121/76 H 121/76 H Blood Pressure Mean 91 Blood Pressure Source Monitor Blood Pressure Position Sitting Blood Pressure Location Right Arm Pulse Ox 99 99 Oxygen Delivery Method Room Air Weight Weight: 138 lb 14.259 oz Body Mass Index (BMI) 22.4 Physical Exam Const alert, oriented x3, no apparent distress and healthy appearing General Appearance: cooperative GI normal to inspection, nondistended, normoactive bowel sounds, soft to palpation, non-tender and non-distended Percussion: normal to percussion Rectal Exam: deferred Assessment & Plan Assessment/Plan (1) Anemia: QUALIFIERS: Anemia type: iron deficiency Iron deficiency anemia type: chronic blood loss Qualified Code(s): D50.0 - Iron deficiency anemia secondary to blood loss (chronic) (2) LUQ pain: (3) Gastric ulcer: QUALIFIERS: Gastric ulcer chronicity: unspecified ulcer chronicity Gastric ulcer complication status: with hemorrhage Qualified Code(s): K25.4 - Chronic or unspecified gastric ulcer with hemorrhage PLAN: Plan She will undergo an EGD and colonoscopy. She was explained alternatives, risk, benefits include not withstanding bleeding, infection, sepsis, perforation, need for emergent urgent . She will have an ASA of 3.
--- NOTE | 2024-03-23 07:04 | OP.CCLET_ITS ---
03/23/2024 Hitesh Melton [address] [place] [address] Re : Upper GI endoscopy procedure for Mis Manuel Dear Dr. Melton This procedure was performed on Saturday, March 23, 2024. My impressions and recommendations are as follows: Impressions : - Normal esophagus. - Non-bleeding gastric ulcers with no stigmata of bleeding. Biopsied. - Duodenal mucosal changes seen, diagnostic of celiac disease. Biopsied. Recommendations : - Discharge patient to home. - Resume previous diet. - Continue present medications. - Await pathology results. My findings are described in the full procedure note, which is enclosed. If I can be of further assistance, please feel free to contact me at . Sincerely, Roby Stout, 03/23/2024 7:02:58 AM This report has been signed electronically.
--- NOTE | 2024-03-23 07:04 | OP.EGD_ITS ---
Patient Name: Mis Jackson Procedure Date: 03/23/2024 6:25 AM Date of : 1945 Age: 79 Procedure: Upper GI endoscopy Indications: Iron deficiency anemia Providers: Roby Stout DO Referring MD: Hitesh Melton Medicines: Monitored Anesthesia Care Patient Profile: This is a 79 year old female. Refer to note in patient chart for documentation of history and physical. Patient has symptoms. Her most recent colonoscopy (normal). Complications: No immediate complications. Procedure: Pre-Anesthesia Assessment: - Prior to the procedure, a History and Physical was performed, and patient medications and allergies were reviewed. The patient is competent. The risks and benefits of the procedure and the sedation options and risks were discussed with the patient. All questions were answered and informed consent was obtained. Patient identification and proposed procedure were verified by the physician in the pre-procedure area. Mental Status Examination: alert and oriented. Airway Examination: normal oropharyngeal airway and neck mobility. Respiratory Examination: clear to auscultation. CV Examination: normal. Prophylactic Antibiotics: The patient does not require prophylactic antibiotics. Prior Anticoagulants: The patient has taken no anticoagulant or antiplatelet agents except for NSAID medication. ASA Grade Assessment: II - A patient with mild systemic disease. After reviewing the risks and benefits, the patient was deemed in satisfactory condition to undergo the procedure. The anesthesia plan was to use monitored anesthesia care (MAC). Immediately prior to administration of medications, the patient was re-assessed for adequacy to receive sedatives. The heart rate, respiratory rate, oxygen saturations, blood pressure, adequacy of pulmonary ventilation, and response to care were monitored throughout the procedure. The physical status of the patient was re-assessed after the procedure. After obtaining informed consent, the endoscope was passed under direct vision. Throughout the procedure, the patient's blood pressure, pulse, and oxygen saturations were monitored continuously. The gastroscope was introduced through the mouth, and advanced to the second part of duodenum. The upper GI endoscopy was accomplished without difficulty. The patient tolerated the procedure well. Scope In: 6:52:20 AM Scope Out: 6:57:44 AM Total Procedure Duration Time 0 hours 5 minutes 24 seconds Findings: The examined esophagus was normal. Few non-bleeding superficial gastric ulcers with no stigmata of bleeding were found in the gastric antrum. The largest lesion was 5 mm in largest dimension. Biopsies were taken with a cold forceps for histology. Verification of patient identification for the specimen was done. Estimated blood loss was minimal. Biopsies were taken with a cold forceps for Helicobacter pylori testing. Verification of patient identification for the specimen was done. Estimated blood loss was minimal. Flattening was found in the duodenal bulb and scalloped mucosa was found in the duodenal bulb. Biopsies for histology were taken with a cold forceps for evaluation of celiac disease. Verification of patient identification for the specimen was done. Estimated blood loss was minimal. Impression: - Normal esophagus. - Non-bleeding gastric ulcers with no stigmata of bleeding. Biopsied. - Duodenal mucosal changes seen, diagnostic of celiac disease. Biopsied. Recommendation: - Discharge patient to home. - Resume previous diet. - Continue present medications. - Await pathology results. Procedure Code(s): --- Professional --- 96783, Esophagogastroduodenoscopy, flexible, transoral; with biopsy, single or multiple CPT copyright 2021 [employer] [employer]. All rights reserved. The codes documented in this report are preliminary and upon temporary receptionist review may be revised to meet current compliance requirements. Roby Stout DO 03/23/2024 7:02:58 AM This report has been signed electronically. Number of Addenda: 0 Note Initiated On: 03/23/2024 6:25 AM
--- NOTE | 2024-03-23 07:06 | PCM.POST.ANE ---
Anesthesia: Postop Eval I Current Vital Signs Temperature: 97.4 F Pulse Rate: 64 Blood Pressure: 136/104 Respiratory Rate: 16 Pulse Ox: 99 Oxygen Delivery Method: Room Air Assessment Airway patent: Yes Spontaneous unlabored respirations: Yes Mental status: Asleep nausea: No Vomiting: No Anesthesia Complication: No Fluid Hydration Crystalloid volume administer (ml): 30 Total IV fluid infused: 30 Progress Note Anesthesia document: Postop Eval 1 completed: Yes
--- NOTE | 2024-03-23 07:33 | PCM.POSTANE2 ---
Anesthesia Postop Eval I Sum Postop Eval Completion status Anesthesia document: Postop Eval 1 completed: Yes Anesthesia Postop Eval I Summary Anesthesia Postop Eval I Summary: Anesthesia Postop Eval I: Assessment Summary Airway patent Yes 03/23/24 07:07 [email or web address] Spontaneous unlabored Yes 03/23/24 07:07 [email or web address] respirations Mental status Asleep 03/23/24 07:07 [email or web address] nausea No 03/23/24 07:07 [email or web address] Vomiting No 03/23/24 07:07 [email or web address] Anesthesia Postop Eval I: Fluid Summary Crystalloid volume administer 30 03/23/24 07:07 [email or web address] (ml) Colloids volume administered ( ml) Blood Product volume administered (ml) Total IV fluid infused 30 03/23/24 07:07 [email or web address] Anesthesia Postop Eval I: Summary Notes Anesthesia Complication No 03/23/24 07:07 [email or web address] Anesthesia Complication Comment: Post-operative progress note Anesthesia: Postop Eval II Evaluation Mental status: Awake Pain Level: 0 nausea: No Vomiting: No
== END 2024-03-23 07:58 | disposition home or self-care (01) ==
LOC: EN 05:24 → AC 05:26
PROVIDERS: PCP Internal Medicine; Referring Provider Internal Medicine; Visit Provider Internal Medicine Gastroenterology
PROC: 0DJ08ZZ Inspection of Upper Intestinal Tract, Via Natural or Artificial Opening Endoscopic (ICD-10-PCS; CPT 43235; principal; 2024-03-23 06:25)
DX: K29.80 Duodenitis without bleeding (principal); K25.9 Gastric ulcer, unspecified as acute or chronic, without hemorrhage or perforation; R10.12 Left upper quadrant pain; K90.0 Celiac disease; Z79.02 Long term (current) use of antithrombotics/antiplatelets; D50.0 Iron deficiency anemia secondary to blood loss (chronic); Z79.899 Other long term (current) drug therapy; K29.50 Unspecified chronic gastritis without bleeding; I10 Essential (primary) hypertension; F17.200 Nicotine dependence, unspecified, uncomplicated
CPT/HCPCS: 43239; 88305; 88342; A4216; J2405

== ENCOUNTER 2024-04-06 16:44 | Emergency (ER) | payer MEDICARE, SELFPAY ==
[2024-04-06 16:46] VITALS: BP 138/84; PULSE 70; RESP 16; TEMP 37; O2SAT 100; BMI 23.1
--- NOTE | 2024-04-06 16:54 | EX.ED.DYSGE1 ---
HPI History of Present Illness Chief Complaint: GI Bleed [facility] Medical History Neck pain Wears glasses Anxiety Arthritis Leg cramps Restless legs TIA (transient ischemic attack) History of ulceration History of GI bleed Smoker Shortness of breath on exertion History of pain when walking History of echocardiogram Home Medications ?Medication ?Instructions ?Recorded ?Last Taken ?Type L.acidoph,paracasei,B.animalis 10 1 ea PO DAILY 07/27/15 Unknown History billion cell capsule clopidogrel 75 mg tablet 75 mg PO DAILY #30 TABLETS 07/28/15 03/17/24 Rx losartan 100 mg tablet (Cozaar) 100 mg PO DAILY 04/15/23 03/22/24 History metoprolol succinate 25 mg 25 mg PO DAILY 04/15/23 03/22/24 History tablet,extended release 24 hr sucralfate 1 gram tablet 1 g PO TID 02/18/24 Unknown History furosemide 20 mg tablet (Lasix) 20 mg PO DAILY 3 days #3 tabs 03/17/24 Unknown Rx cholecalciferol (vitamin D3) 125 125 mcg PO DAILY 03/20/24 Unknown History mcg (5,000 unit) tablet (Vitamin D3) vitamin B12 1,000 mcg-folic acid 1 flaco sublingual DAILY 03/20/24 Unknown History 400 mcg sublingual lozenge pantoprazole 20 mg tablet,delayed 40 mg PO BID 03/29/24 Unknown History release ferrous sulfate 325 mg (65 mg 325 mg PO QDAY #90 tabs 03/31/24 Unknown Rx iron) tablet Allergy/AdvReac Type Severity Reaction Status Date / Time No Known Allergies Allergy Verified 03/23/24 05:41 Surgical History History of colonoscopy History of esophagogastroduodenoscopy (EGD) Social History Smoking Status: Light Smoker (<10/day) EXAM Physical Exam Const Vital Signs: 04/06/24 16:46 04/06/24 18:45 Temperature 98.6 F Temperature Source Oral Pulse Rate 70 76 Respiratory Rate 16 18 Blood Pressure 138/84 H 136/78 H Blood Pressure Mean 102 97 Pulse Ox 100 98 Oxygen Delivery Method Room Air Room Air [facility] [place] Narrative Medical decision making narrative: HISTORY OF PRESENT ILLNESS: 79-year-old female here for with concern for severe anemia requiring blood transfusion. Per the patient her blood was drawn on 1223 and her hemoglobin and hematocrit was 7.2/25.2. Notes she was told by her physician to come the emergency department department immediately. She does note some weakness but denies focal weakness. She endorses throbbing in the left side of her head but denies any headache. Denies any falls or recent trauma. The patient denies knee pain to me. REVIEW OF SYSTEMS: Pertinent positives: Fatigue Pertinent negatives: knee pain, [place] PHYSICAL EXAM: Nursing triage notes reviewed, Vital signs reviewed Constitutional: please see mdm HENT: MMM, no temporal artery tenderness Eyes: Pupils equal round and reactive to light, Extraocular muscles intact Neck: No stridor, no JVD, full neck ROM Lungs: Clear to auscultation, No wheezing or rales. No increased work of breathing, no conversational dyspnea, no accessory muscle use, no nasal flaring. No respiratory distress noted Heart: Regular rate and rhythm, No murmurs, No rubs and No gallops, 2+ distal pulses (radial, femoral, posterior tibial) in all extremities Abdomen: Soft, there is no tenderness, rigidity, rebound or guarding, no obvious peritoneal signs, no palpable pulsatile abdominal masses, no auscultated abdominal bruit : No CVAT Extremities: No edema, full range of motion flexion extension bilateral knees, no obvious deformities Neuro: Alert and oriented x3, neuro exam at baseline, cranial nerves II through XII are intact. No pain with extraocular muscle movement. There is negative test of skew. 5 of 5 strength in upper and lower extremities in flexion extension. Intact sensation to light touch in upper and lower extremity dermatomes. No truncal or extremity ataxia. No dysdiadochokinesia. 2+ reflexes in upper and lower extremities. No meningeal signs. Negative Babinski. NIH of 0. Skin: No rash or lesions noted MEDICAL DECISION MAKING: Chief Complaint: External records reviewed: CBC from 04/02/2024 shows hemoglobin 7.2. Reviewed EGD from 03/23/2024 which showed a normal esophagus, nonbleeding gastric ulcers with no stigmata bleeding, duodenal coastal changes, currently awaiting pathology results. Gastric biopsy results showed chronic inflammation and H. pylori negative Factors affecting care: none Social determinants of health: none History obtained from others: none Consults: Gastroenterology (Dr. Stout)?discussed patient's hemoglobin symptoms and need for admission or urgent EGD or colonoscopy. Dr. Stout noted the patient did not need urgent or emergent GI intervention. Recommended outpatient follow-up MDM Narrative: The patient was initially hemodynamically stable, afebrile and nontoxic-appearing. No focal neurologic deficits noted. I considered the following differential diagnosis: Anemia, ICH I obtained labs and a CT scan of the patient's head ALL IMAGES (IF OBTAINED) HAVE BEEN PERSONALLY REVIEWED AND INTERPRETED BY MYSELF. Patient's hemoglobin 7.7. She does not meet criteria for emergent transfusion at this time. She has no signs of active bleeding and she is not on anticoagulation. No indication for emergent GI consultation or admission at this time in terms of anemia. In terms of patient's throbbing/head discomfort her non-contrast CT scan of the head showed no acute intracranial abnormality. Discussed the case with GI. The patient is appropriate discharge home The patient and/or family, caregivers express understanding. The patient and/or family, caregivers agrees with the plan. Shared decision making: I will have a discussion with the patient and or visitors regarding risk/benefits of further testing or admission. They will be made aware of of the risk/benefits inherent in this decision they will be given the opportunity to voice understanding. Total critical care time today provided was at least 0 minutes. This excludes separately billable procedures. Critical care time (if documented) is secondary to the patient having high probability of clinically significant/life threatening deterioration in the patient's condition which required my urgent intervention. Impression: 1. Chronic anemia 2. History of gastric ulcer Dispo: Discharge home This note was generated with [employer] dictation software. It may contain incorrect words, spelling, and punctuation that were not noted in review of the chart prior to signing. Lab Data Labs: Laboratory Results - last 24 hr 04/06/24 17:18 WBC 7.9 RBC 3.06 L Hgb 7.7 L Hct 26.9 L MCV 87.9 MCH 25.2 L MCHC 28.6 L RDW Std Deviation 75.9 H RDW Coeff of Amada 24.0 H Plt Count 377 MPV 10.6 Sodium 142 Potassium 3.8 Chloride 110 H Carbon Dioxide 27.0 Anion Gap 5 BUN 20 H Creatinine 0.67 Estim Creat Clear Calc 54.26 Est GFR (MDRD) Af Amer 109 Est GFR (MDRD) Non-Af 90 BUN/Creatinine Ratio 29.8 H Glucose 92 Calcium 9.6 Blood Type O NEGATIVE Antibody Screen NEGATIVE Radiography Diagnostic Testing: Clinical Impression(s) from Imaging Studies Brain CT 04/06/24 17:11 IMPRESSION: No acute intracranial pathology of the brain. Electronically Signed: Clinton Georges DO at 19:09 EST Reading Location ID and State: [facility] / [place] Tel [phone], Service support , Discharge Plan Triage Chief Complaint: GI Bleed ED Provider: Jose Angel Winkler Dx/Rx/DC Orders Clinical Impression: Anemia Instructions: Anemia Prescriptions: No Action LLiamacidoph,paracasei,B.animalis 1 EACH capsule 1 ea PO DAILY Patient Comments: STOMACH clopidogrel 75 MG tablet 75 mg PO DAILY Qty: 30 2RF losartan [Cozaar] 100 mg tablet 100 mg PO DAILY metoprolol succinate 25 mg tablet extended release 24 hr 25 mg PO DAILY sucralfate 1 gram tablet 1 g PO TID vitamin P71-sleqw acid 1,000-400 mcg lozenge 1 flaco sublingual DAILY cholecalciferol (vitamin D3) [Vitamin D3] 125 mcg (5,000 unit) tablet 125 mcg PO DAILY furosemide [Lasix] 20 mg tablet 20 mg PO DAILY 3 Days Qty: 3 0RF pantoprazole 20 mg tablet,delayed release (DR/EC) 40 mg PO BID ferrous sulfate 325 mg (65 mg iron) tablet 325 mg PO QDAY Qty: 90 1RF Primary Care Provider: Hitesh Melton Referrals: Roby Stout DO [Med Staff - Active Staff] - Hitesh Melton MD [Primary Care Provider] - Activity Restrictions/Additional Instructions: Thank you for trusting us with your care today! Please return to the emergency department if your symptoms change or worsen. Please follow with your primary care physician and GI for further outpatient evaluation and management. Print Language: Chinese Disposition Disposition: Home, Self Care
--- NOTE | 2024-04-06 17:11 | CT_ITS ---
STUDY: CT BRAIN WITHOUT CONTRAST REASON FOR EXAM: Female, 79 years old. headache RADIATION DOSAGE (If Supplied By Facility): CTDIvol = ( 44.99 ) mGy, DLP = ( 796.11 ) mGycm TECHNIQUE: Transaxial CT imaging of the brain was performed without administration of intravenous contrast material. Individualized dose optimization techniques were used for this CT. COMPARISON: No relevant priors. FINDINGS: Normal soft tissue structures. Normal calvarium. Normal size ventricles and extra-axial spaces for the patient''s age. Normal white matter tracts of the cerebral hemispheres. Normal basal ganglia and thalami. Normal brainstem. Normal cerebellum. There is no intracranial hemorrhage. There are no findings of an acute ischemic infarction. Normal visualized paranasal sinuses. CT/Brain/Head without Contrast IMPRESSION: No acute intracranial pathology of the brain. Electronically Signed: Clinton Georges DO at 19:09 EST ,
[2024-04-06 17:27] LABS: Hematocrit 26.9 % (37-47); Hemoglobin 7.7 g/dL (12.0-15.0); Mean Corp Hgb Conc 28.6 g/dL (32-36); Mean Corpuscular Hgb 25.2 pg (27.0-32.0); Mean Corpuscular Volume 87.9 fL (81-99); Mean Platelet Vol. 10.6 fl (6.2-12.0); Platelet Count 377 K/mm3 (150-450); RBC Distribution Width SD 75.9 fl (35.1-43.9); Red Blood Count 3.06 M/mm3 (4.2-5.4); White Blood Count 7.9 K/mm3 (4.4-11.0)
[2024-04-06 17:38] LABS: Scan Indicated on CBC? Y/N YES- FLAGS NOTED
[2024-04-06 17:45] LABS: Anion Gap 5 (5-15); BUN 20 mg/dL (7-18); BUN/Creat Ratio 29.8 RATIO (10-20); Calcium,Total 9.6 mg/dL (8.5-10.1); Chloride 110 mmol/L (98-107); Creatinine, Serum 0.67 mg/dL (0.55-1.02); EST Glomerular Filtration Rate 90 mL/min (>60); Est Glom Filt Rate - Afr Amer 109 mL/min (>60); Estimated Creatinine Clearance 54.26 ml/min; Glucose 92 mg/dL (74-106); Potassium 3.8 mmol/L (3.5-5.1); Sodium Level 142 mmol/L (136-145)
[2024-04-06 17:58] LABS: POSITIVE MORPHOLOGY YES
[2024-04-06 18:45] VITALS: BP 136/78; PULSE 76; RESP 18; O2SAT 98
[2024-04-06 19:59] VITALS: BP 132/76; PULSE 78; RESP 16; TEMP 36.6; O2SAT 98
== END 2024-04-06 20:01 | disposition home or self-care (01) ==
PROVIDERS: Emergency Provider Emergency Medicine; PCP Internal Medicine; Visit Provider Emergency Medicine
DX: D64.9 Anemia, unspecified (principal); F17.200 Nicotine dependence, unspecified, uncomplicated; Z79.02 Long term (current) use of antithrombotics/antiplatelets; Z79.899 Other long term (current) drug therapy; Z87.19 Personal history of other diseases of the digestive system; Z86.73 Personal history of transient ischemic attack (TIA), and cerebral infarction without residual deficits
CPT/HCPCS: 70450; 80048; 85027; 86850; 86900; 86901; 99282; A4216

== ENCOUNTER 2024-05-21 14:10 | Emergency (ER) | payer MEDICARE, SELFPAY ==
[2024-05-21 14:10] VITALS: BP 122/73; PULSE 114; RESP 16; TEMP 36.2; O2SAT 100; BMI 22.2
--- NOTE | 2024-05-21 14:28 | RAD_ITS ---
PROCEDURE: ANKLE MIN 3 VIEWS REASON FOR EXAM: Left ankle pain. No known injury. TECHNIQUE: 3 views of the left ankle COMPARISON: None RAD/Ankle min 3 Views IMPRESSION: Minimal degenerative changes are seen of the left ankle joint, without signific ant degree of joint space narrowing. Partial calcification of the proximal plantar fascia is seen on the lateral view. Normal contour of the Achilles tendon is noted. Minimal degenerative changes are seen at the midfoot. Satisfactory osseous alignment is present. No acute fracture or dislocation is seen. Reading Location: [id number]
--- NOTE | 2024-05-21 15:43 | ED.VIS.LOWEX ---
HPI History of Present Illness Chief Complaint: Lower Extremity Injury Informant: patient Narrative Narrative: Awaking pain left ankle. There is swelling. Pain with ambulation. No fever or chills. Denies any strenuous activities yesterday. Took Tylenol. Prior similar symptoms: No PFSH PFSH Medical History Pulmonary nodule Adrenal nodule High catecholamines Osteopenia Hypertension Hypertension Type 2 diabetes mellitus Hyperlipidemia At risk for hemorrhage associated with anticoagulation therapy History of TIA (transient ischemic attack) Neck pain Wears glasses Anxiety Arthritis Leg cramps Restless legs History of ulceration History of GI bleed Smoker Shortness of breath on exertion History of pain when walking History of echocardiogram Home Medications ?Medication ?Instructions ?Recorded ?Last Taken ?Type L.acidoph,paracasei,B.animalis 10 1 ea PO DAILY 07/27/15 Unknown History billion cell capsule clopidogrel 75 mg tablet 75 mg PO DAILY #30 TABLETS 07/28/15 03/17/24 Rx Held on 03/20/24. Instructions: STOPPED D/T EGD losartan 100 mg tablet (Cozaar) 100 mg PO DAILY 04/15/23 03/22/24 History metoprolol succinate 25 mg 25 mg PO DAILY 04/15/23 03/22/24 History tablet,extended release 24 hr sucralfate 1 gram tablet 1 g PO TID 02/18/24 Unknown History cholecalciferol (vitamin D3) 125 125 mcg PO DAILY 03/20/24 Unknown History mcg (5,000 unit) tablet (Vitamin D3) vitamin B12 1,000 mcg-folic acid 1 flaco sublingual DAILY 03/20/24 Unknown History 400 mcg sublingual lozenge pantoprazole 20 mg tablet,delayed 40 mg PO BID 03/29/24 Unknown History release ferrous sulfate 325 mg (65 mg 325 mg PO QDAY #90 tabs 03/31/24 Unknown Rx iron) tablet Allergy/AdvReac Type Severity Reaction Status Date / Time famotidine AdvReac Rash Verified 04/17/24 10:23 [id number] Reductase AdvReac Other Verified 04/17/24 10:23 Inhibitor Family History Mother Hypertension Alzheimer's disease Father Hypertension Heart disease Sister Breast cancer Dementia Alcohol abuse Brother Alcohol abuse CVA (cerebral vascular accident) Grandmother Diabetes Surgical History H/O right breast biopsy History of toe surgery History of appendectomy History of colonoscopy History of esophagogastroduodenoscopy (EGD) Social History Smoking Status: Current every day smoker tobacco type: cigarettes alcohol intake: never substance use type: does not use caffeine: No ROS ROS ED Constitutional Constitutional ED: Denies chills, fever(s) or sweats Gastrointestinal Gastrointestinal: Denies abdominal pain, vomiting or other Musculoskeletal Musculoskeletal: Reports extremity pain; Denies back pain or neck pain Integumentary Denies rash or wounds Neurologic Neurologic: Denies headache(s), paresthesias or weakness EXAM Physical Exam Const Vital Signs: 05/21/24 14:10 Temperature 97.1 F L Temperature Source Temporal Pulse Rate 114 H Respiratory Rate 16 Blood Pressure 122/73 H Blood Pressure Mean 89 Pulse Ox 100 Oxygen Delivery Method Room Air Positive well nourished and well developed General Appearance ED: well developed and NAD HEENT Reports moist mucous membranes normocephalic and atraumatic Neck full ROM Chest Wall Chest: Negative for tenderness Resp normal respiratory effort and normal air movement Effort and Inspection: symmetric chest movement; Negative for respiratory distress Cardio regular rate, regular rhythm and no murmurs Peripheral Pulses: pulses 2+ throughout GI normal to inspection, nondistended, normoactive bowel sounds and non-tender Palpation: Negative for guarding or rebound tenderness present Extremity Extremity Narrative: Left lower extremity: Swelling lateral ankle tenderness to ATFL calcaneofibular ligament. There is no redness there is no pain with short arc movement. No midfoot no proximal fifth base tenderness. No warmth of the ankle. General Extremety ED: Yes edema and tenderness General Extremity: edema Neuro oriented x3 and no sensory deficits noted Sensorium / Orientation: awake and alert Skin no rashes or lesions noted and no wounds MDM MDM MDM Narrative Medical decision making narrative: Interventions / MDM: Differential diagnosis: Ankle swelling, ankle sprain Diagnosis considered but do not suspect: No clinical septic joint My EKG interpretation: N/A Imaging independently reviewed and interpreted by myself: Left ankle 3 views: No fracture, soft tissue swelling noted. Also read by radiology. External documents reviewed: N/A Test considered but not ordered:N/A ED course: Nursing protocol with x-rays interpreted myself and read by radiology no fractures. No clinical infection. She is tenderness and swelling over ligamentous regions. [place] wrap service provided. She will continue Tylenol at home. She has follow-up with her PCP this week. All questions were answered. Re-evaluation: stable Disposition discussed with patient/family/significant other: Patient and friend Case discussed with consulting clinician: N/A This note was generated with [employer] dictation software. It may contain incorrect words, spelling, and punctuation that were not noted in checking the note before signing. Radiography Diagnostic Testing: Clinical Impression(s) from Imaging Studies Ankle X-Ray 05/21/24 14:28 IMPRESSION: Minimal degenerative changes are seen of the left ankle joint, without significant degree of joint space narrowing. Partial calcification of the proximal plantar fascia is seen on the lateral view. Normal contour of the Achilles tendon is noted. Minimal degenerative changes are seen at the midfoot. Satisfactory osseous alignment is present. No acute fracture or dislocation is seen. Reading Location: [address] Discharge Plan Triage Chief Complaint: Lower Extremity Injury ED Provider: Heber Brumfield Dx/Rx/DC Orders Clinical Impression: Acute left ankle pain, Left ankle swelling Instructions: ED Arthralgia Prescriptions: No Action L.acidoph,paracasei,B.animalis 1 EACH capsule 1 ea PO DAILY Patient Comments: STOMACH clopidogrel 75 MG tablet 75 mg PO DAILY Qty: 30 2RF losartan [Cozaar] 100 mg tablet 100 mg PO DAILY metoprolol succinate 25 mg tablet extended release 24 hr 25 mg PO DAILY sucralfate 1 gram tablet 1 g PO TID vitamin C02-[id number] acid 1,000-400 mcg lozenge 1 flaco sublingual DAILY cholecalciferol (vitamin D3) [Vitamin D3] 125 mcg (5,000 unit) tablet 125 mcg PO DAILY pantoprazole 20 mg tablet,delayed release (DR/EC) 40 mg PO BID ferrous sulfate 325 mg (65 mg iron) tablet 325 mg PO QDAY Qty: 90 1RF Primary Care Provider: Hitesh Melton Referrals: Hitesh Melton MD [Primary Care Provider] - Keep Leyda appointment Activity Restrictions/Additional Instructions: X-ray left ankle negative. No clinical concerns for infection. Enrico wrap and stirrup for comfort. Continue Tylenol up to 1 g every 6 hours. Keep your follow-up with your doctor. Print Language: Persian Disposition Disposition: Home, Self Care Discharge Date/Time: 05/21/24 16:06
--- NOTE | 2024-05-21 16:10 | CHAPLAIN ---
Type of Pastoral Visit ___ Initial Visit ___ Follow-up Visit ___ On-call Visit _x__ General Patient Visit ___ Spiritual Assessment ___ Family Conference ___ Bereavement ___ Rapid Response ___ Code Blue ___ Other (describe below) Pastoral Care Referral From ___ Patient _x__ Family ___ Nurse ___ Physician ___ Cold Rolling Machine Setter ___ Wire Bender Hand ___ Other (describe below) Sacrament/Intervention _x__ Active listening ___ Anointing ___ Sikhism ___ Bereavement ___ Communion ___ Sharon exploration ___ _x__ Life review ___ Prayer ___ Reconciliation ___ Sacrament of Sick _x__ Supportive presence ___ Wedding ___ Other (describe below) Pastoral Comments patient was waiting in the ED to be seen; a family member asked for support; pt was talkative and expressive about her life, family, and physical need today; pt welcomed supportive presence and personal attention
== END 2024-05-21 16:06 | disposition home or self-care (01) ==
LOC: ED 15:57
PROVIDERS: Emergency Provider Emergency Medicine; PCP Internal Medicine; Visit Provider Emergency Medicine
DX: M25.572 Pain in left ankle and joints of left foot (principal); E11.9 Type 2 diabetes mellitus without complications; M25.472 Effusion, left ankle; E78.5 Hyperlipidemia, unspecified; I10 Essential (primary) hypertension; F17.210 Nicotine dependence, cigarettes, uncomplicated; Z79.02 Long term (current) use of antithrombotics/antiplatelets; Z79.899 Other long term (current) drug therapy; Z86.73 Personal history of transient ischemic attack (TIA), and cerebral infarction without residual deficits
CPT/HCPCS: 73610; 99283

== ENCOUNTER 2024-05-31 13:46 | Emergency (ER) | payer MEDICARE, SELFPAY ==
[2024-05-31 13:47] VITALS: BP 164/98; PULSE 85; RESP 16; TEMP 36.4; O2SAT 100; BMI 22.5
--- NOTE | 2024-05-31 15:11 | CT_ITS ---
EXAM: BRAIN/HEAD WITHOUT CONTRAST CLINICAL HISTORY: Left shoulder weakness for 1 week. COMPARISON: Comparison is made with prior study dated April 06, 2024. TECHNIQUE: Multiple axial tomographic images were obtained without intravenous contrast administration. Coronal and sagittal reconstruction was obtained as well. FINDINGS: Mild degree of cerebral atrophy. No focal lesion is seen. No evidence of mass effect. CT/Brain/Head without Contrast IMPRESSION: Mild degree of cerebral atrophy in keeping with the patient's age. Reading Location: [id number]
--- NOTE | 2024-05-31 15:11 | CT_ITS ---
PROCEDURE: SPINE CERVICAL WITHOUT CONTRAS REASON FOR EXAM: Left shoulder weakness. TECHNIQUE: Cervical spine CT without contrast. COMPARISON: None. FINDINGS: Alignment: Normal Vertebrae: No acute fracture Soft Tissues: Unremarkable C1-2: Normal alignment. Dens appears intact. Degenerative changes of the atlantoaxial joint. C2-3: Facet joint osteoarthritis worse on the left side. Mild degree of left neural foraminal stenosis. C3-4: Facet joint osteoarthritis. Bilateral neural foraminal stenosis. C4-5: Marked degree of disc space narrowing. Uncovertebral arthrosis. Posterior spondylosis. Marked degree of bilateral neural foraminal stenosis and mild central canal stenosis. C5-6: Marked degree of disc space narrowing. Spondylosis. Uncovertebral arthrosis. Bilateral neural foraminal stenosis worse on the right side. C6-7: Moderate degree of disc space narrowing. Facet joint osteoarthritis. Bilateral neural foraminal stenosis. C7-T1: Unremarkable CT/Spine Cervical without Contras IMPRESSION: NO ACUTE CERVICAL FRACTURE. Neural foraminal and spinal stenosis as described above. One or more dose reduction techniques were used (e.g., Automated exposure contr ol, adjustment of the mA and/or kV according to patient size, use of iterative reconstruction technique). Reading Location: [facility]
--- NOTE | 2024-05-31 15:12 | EKG12_ITS ---
Test Reason : Blood Pressure : */* mmHG Vent. Rate : 74 BPM Atrial Rate : 74 BPM P-R Int : 156 ms QRS Dur : 86 ms QT Int : 388 ms P-R-T Axes : 47 -32 28 degrees QTcB Int : 430 ms Sinus rhythm with Premature atrial complexes Left axis deviation Septal infarct , age undetermined Abnormal ECG Confirmed by DALE GRAYSON ([id number]), editor farm journal MICHELLE COLLINS ([id number]) on 06/04/2024 7:11:06 AM Referred By: Confirmed By: DALE GRAYSON
--- NOTE | 2024-05-31 15:13 | EX.ED.DYSGE1 ---
HPI History of Present Illness Chief Complaint: Weakness Narrative Narrative: 79-year-old female past medical history of hyperlipidemia, anemia requiring previous blood transfusion and iron infusions, previous stroke with right sided arm weakness that has resolved, presents with 1 week of left-sided neck pain and left shoulder weakness. She states that she has a dull achy pain at times and has for the last week in her left neck and shoulder. She denies any fevers or chills, no nausea or vomiting, no chest pain or shortness of breath. She is concerned that she had a stroke or mini stroke. She is not currently taking any blood thinners, stating that after her symptoms had resolved, she is only put on a statin. She states over the last week she has had problems raising her left arm. She is describing generalized weakness. No recent trauma. No left leg weakness or problems with speech, no other symptoms. She states that she had mention to her primary care provider previously that she was having left-sided neck pain radiating down her arm. [facility] Medical History Pulmonary nodule Adrenal nodule High catecholamines Osteopenia Hypertension Hypertension Type 2 diabetes mellitus Hyperlipidemia At risk for hemorrhage associated with anticoagulation therapy History of TIA (transient ischemic attack) Neck pain Wears glasses Anxiety Arthritis Leg cramps Restless legs History of ulceration History of GI bleed Smoker Shortness of breath on exertion History of pain when walking History of echocardiogram Home Medications ?Medication ?Instructions ?Recorded ?Last Taken ?Type L.acidoph,paracasei,B.animalis 10 1 ea PO DAILY 07/27/15 Unknown History billion cell capsule clopidogrel 75 mg tablet 75 mg PO DAILY #30 TABLETS 07/28/15 03/17/24 Rx Held on 03/20/24. Instructions: STOPPED D/T EGD losartan 100 mg tablet (Cozaar) 100 mg PO DAILY 04/15/23 03/22/24 History metoprolol succinate 25 mg 25 mg PO DAILY 04/15/23 03/22/24 History tablet,extended release 24 hr sucralfate 1 gram tablet 1 g PO TID 02/18/24 Unknown History cholecalciferol (vitamin D3) 125 125 mcg PO DAILY 03/20/24 Unknown History mcg (5,000 unit) tablet (Vitamin D3) vitamin B12 1,000 mcg-folic acid 1 flaco sublingual DAILY 03/20/24 Unknown History 400 mcg sublingual lozenge pantoprazole 20 mg tablet,delayed 40 mg PO BID 03/29/24 Unknown History release ferrous sulfate 325 mg (65 mg 325 mg PO QDAY #90 tabs 03/31/24 Unknown Rx iron) tablet Allergy/AdvReac Type Severity Reaction Status Date / Time famotidine AdvReac Rash Verified 04/17/24 10:23 [id number] Reductase AdvReac Other Verified 04/17/24 10:23 Inhibitor Family History Mother Hypertension Alzheimer's disease Father Hypertension Heart disease Sister Breast cancer Dementia Alcohol abuse Brother Alcohol abuse CVA (cerebral vascular accident) Grandmother Diabetes Surgical History H/O right breast biopsy History of toe surgery History of appendectomy History of colonoscopy History of esophagogastroduodenoscopy (EGD) Social History Smoking Status: Current every day smoker tobacco type: cigarettes alcohol intake: never substance use type: does not use caffeine: No ROS ROS ED ROS Narrative Review of systems positive for left shoulder weakness and difficulty raising left arm at shoulder. No fevers or chills, no chest pain or shortness of breath. Occasional left-sided neck pain. Pain radiates down left arm.. EXAM Physical Exam Narrative Exam Narrative: Afebrile. Vital signs noted. Nontoxic-appearing. Cardiovascular examination reveals a regular rate and rhythm. Lungs are clear to auscultation bilaterally. Abdomen soft nontender with normoactive bowel sounds. Examination of the neck shows full range of motion. No vertebral point tenderness bony step-off. Mild left-sided shoulder weakness noted. Neurovascularly intact distally with palpable radial pulse. NIH stroke scale is 0. Neurological examination otherwise nonfocal except for the isolated left shoulder weakness. Const Vital Signs: 05/31/24 13:47 05/31/24 15:55 05/31/24 15:57 Temperature 97.6 F L Temperature Source Temporal Pulse Rate 85 63 Respiratory Rate 16 16 Respiratory Effort Normal Non-Labored Respiratory Pattern Normal Blood Pressure 164/98 H 144/78 H Blood Pressure Mean 120 100 Pulse Ox 100 97 Oxygen Delivery Method Room Air Room Air 05/31/24 16:00 Temperature Temperature Source Pulse Rate 67 Respiratory Rate 18 Respiratory Effort Respiratory Pattern Blood Pressure 150/83 H Blood Pressure Mean 105 Pulse Ox 97 Oxygen Delivery Method Room Air MDM MDM MDM Narrative Medical decision making narrative: Differential diagnosis includes but not limited to cervical radiculopathy versus stroke as her symptoms been ongoing for at least a week versus 2 arthritis left shoulder. I do not feel that stroke team is indicated as she is outside the window for TNK as she has been symptomatic for at least a week. I have low suspicion for intracranial hemorrhage given the length of time that her symptoms have been ongoing as well. I also have low suspicion for cervical neck fracture as she has not had any trauma. I are on the differential would be cervical radiculopathy. Patient was reassured. I will obtain a CT of the brain and C-spine as well as well as basic laboratory work and EKG. I do not feel she needs a troponin because not having chest pain. EKG was obtained and interpreted by myself independently as sinus rhythm with PACs without acute ST changes. No STEMI. I reviewed her laboratory work and she has normal white count of 7.5, hemoglobin improved over previous laboratories of 10.7 consistent with her chronic anemia. Platelet count normal at 327. Chloride is slightly elevated at 108 which I think is nonspecific, no dehydration with a normal BUN of 11 and creatinine 0.5. AST is low at 8 which I think is nonspecific. CT of the brain shows no evidence of an acute hemorrhage, there is cerebral atrophy consistent with her age and of the radiology report. Additionally, there is neural foraminal and spinal stenosis noted on the CT of the cervical spine without evidence of acute fracture after review of the radiology report. At this point in time, I have very low concern for stroke/TIA and do not feel that she requires admission or observation as her symptoms have been ongoing for greater than a week. I referred her to orthopedics, Dr. Cabezas for her cervical stenosis. Additionally, she states that she does not need anything for pain and that what is most bothersome to her is her inability to fully raise her left arm at the shoulder joint. She will take [id number] medications as I discussed with her narcotic pain medications, and she declined. Return instructions to the emergency department were reviewed. Disposition is discharged home in stable condition. History & Record Review Discussion w/independent historian: Patient and Family Lab Data Attestation: I reviewed the patient's lab results. Labs: Laboratory Results - last 24 hr 05/31/24 15:22 WBC 7.5 RBC 4.02 L Hgb 10.7 L Hct 35.4 L MCV 88.1 MCH 26.6 L MCHC 30.2 L RDW Std Deviation 60.5 H RDW Coeff of Amada 18.7 H Plt Count 327 MPV 10.4 Immature Gran % (Auto) 0.400 Neut % (Auto) 74.7 H Lymph % (Auto) 13.9 L [place] % (Auto) 9.1 Eos % (Auto) 1.1 Baso % (Auto) 0.8 Absolute Neuts (auto) 5.6 Absolute Lymphs (auto) 1.04 Nucleated RBC % 0 Sodium 141 Potassium 3.7 Chloride 108 H Carbon Dioxide 27.0 Anion Gap 6 BUN 11 Creatinine 0.56 Estim Creat Clear Calc 54.26 Est GFR (MDRD) Af Amer 135 Est GFR (MDRD) Non-Af 111 BUN/Creatinine Ratio 19.6 Glucose 84 Calcium 10.0 Total Bilirubin 0.30 AST 8 L ALT 14 Alkaline Phosphatase 109 Total Protein 6.8 Albumin 3.4 Globulin 3.4 Albumin/Globulin Ratio 1.0 Radiography Diagnostic Testing: Clinical Impression(s) from Imaging Studies Brain CT 05/31/24 15:11 IMPRESSION: Mild degree of cerebral atrophy in keeping with the patient's age. Reading Location: [facility] Cervical Spine CT 05/31/24 15:11 IMPRESSION: NO ACUTE CERVICAL FRACTURE. Neural foraminal and spinal stenosis as described above. One or more dose reduction techniques were used (e.g., Automated exposure control, adjustment of the mA and/or kV according to patient size, use of iterative reconstruction technique). Reading Location: [facility] Discharge Plan Triage Chief Complaint: Weakness ED Provider: Brent Curry Dx/Rx/DC Orders Clinical Impression: Cervical radiculopathy, Left shoulder pain, Cervical spinal stenosis Instructions: ED Neck Pain, ED Radiculopathy, Cervical, ED Shoulder Pain, Uncertain Cause Prescriptions: No Action L.acidoph,paracasei,B.animalis 1 EACH capsule 1 ea PO DAILY Patient Comments: STOMACH clopidogrel 75 MG tablet 75 mg PO DAILY Qty: 30 2RF losartan [Cozaar] 100 mg tablet 100 mg PO DAILY metoprolol succinate 25 mg tablet extended release 24 hr 25 mg PO DAILY sucralfate 1 gram tablet 1 g PO TID vitamin [id number]-[id number] acid 1,000-400 mcg lozenge 1 flaco sublingual DAILY cholecalciferol (vitamin D3) [Vitamin D3] 125 mcg (5,000 unit) tablet 125 mcg PO DAILY pantoprazole 20 mg tablet,delayed release (DR/EC) 40 mg PO BID ferrous sulfate 325 mg (65 mg iron) tablet 325 mg PO QDAY Qty: 90 1RF Primary Care Provider: Hitesh Melton Referrals: Orlando Cabezas MD [Med Staff - Active Staff] - As soon as possible Hitesh Melton MD [Primary Care Provider] - Activity Restrictions/Additional Instructions: Follow-up with orthopedic spine as soon as possible. Return with fever, new or worsening symptoms. Print Language: St Helenian Disposition Disposition: Home, Self Care
[2024-05-31 15:41] LABS: Absolute Lymphocyte Count 1.04 X10^3/uL (0.83-4.51); Absolute Neutrophil Count 5.6 X10^3/uL (2.0-7.7); Basophil# 0.06 X10^3/uL; Basophil% 0.8 % (0-1); Eosinophil# 0.08 X10^3/uL; Eosinophils% 1.1 % (0-5); Hematocrit 35.4 % (37-47); Hemoglobin 10.7 g/dL (12.0-15.0); Lymphocyte # 1.04 X10^3/ul (0.83-4.51); Lymphocyte % 13.9 % (19-41); Mean Corp Hgb Conc 30.2 g/dL (32-36); Mean Corpuscular Hgb 26.6 pg (27.0-32.0); Mean Corpuscular Volume 88.1 fL (81-99); Mean Platelet Vol. 10.4 fl (6.2-12.0); Monocyte# 0.68 X10^3/uL; Monocyte% 9.1 % (0-10); NRBC Flagged by Analyzer 0 % (0-5); Neutrophil % 74.7 % (47-70); Platelet Count 327 K/mm3 (150-450); RBC Distribution Width CV 18.7 % (11.6-14.6); RBC Distribution Width SD 60.5 fl (35.1-43.9); Red Blood Count 4.02 M/mm3 (4.2-5.4); White Blood Count 7.5 K/mm3 (4.4-11.0)
[2024-05-31 15:55] VITALS: BP 144/78; PULSE 63; RESP 16; O2SAT 97
[2024-05-31 15:55] LABS: AST(SGOT) 8 U/L (15-37); Alanine Aminotransfer ALT/SGPT 14 U/L (13-56); Albumin, Serum 3.4 g/dL (3.2-5.0); Alkaline Phosphatase 109 U/L (45-117); Anion Gap 6 (5-15); BUN 11 mg/dL (7-18); BUN/Creat Ratio 19.6 RATIO (10-20); Chloride 108 mmol/L (98-107); Creatinine, Serum 0.56 mg/dL (0.55-1.02); EST Glomerular Filtration Rate 111 mL/min (>60); Est Glom Filt Rate - Afr Amer 135 mL/min (>60); Estimated Creatinine Clearance 54.26 ml/min; Globulin 3.4 g/dL (2.2-4.2); Glucose 84 mg/dL (74-106); Potassium 3.7 mmol/L (3.5-5.1); Protein, Total 6.8 g/dL (6.4-8.2); Sodium Level 141 mmol/L (136-145)
[2024-05-31 16:00] VITALS: BP 150/83; PULSE 67; RESP 18; O2SAT 97
[2024-05-31 16:37] VITALS: BP 150/83; PULSE 72; RESP 16; TEMP 36.6; O2SAT 99
== END 2024-05-31 16:41 | disposition home or self-care (01) ==
PROVIDERS: Emergency Provider Emergency Medicine; PCP Internal Medicine; Visit Provider Emergency Medicine
DX: M54.12 Radiculopathy, cervical region (principal); E11.9 Type 2 diabetes mellitus without complications; M48.02 Spinal stenosis, cervical region; M25.512 Pain in left shoulder; I10 Essential (primary) hypertension; E78.5 Hyperlipidemia, unspecified; Z86.73 Personal history of transient ischemic attack (TIA), and cerebral infarction without residual deficits; Z79.02 Long term (current) use of antithrombotics/antiplatelets; Z79.899 Other long term (current) drug therapy; F17.210 Nicotine dependence, cigarettes, uncomplicated
CPT/HCPCS: 70450; 72125; 80053; 85025; 93005; 99282

== ENCOUNTER 2024-06-15 13:58 | Outpatient (RCR) | payer MEDICARE, SELFPAY ==
--- NOTE | 2024-06-15 16:31 | HP.PTEVAL ---
Patient's Visit Information Visit Information Visit Information: SILVINA NELSON is a 79 year old F referred to Physical Therapy by DAMION Linares with a diagnosis of CERVICAL DISC DEGENERATION ,PAIN IN LEFT SHOULDRR. Date of Evaluation: 06/15/24 Physical Therapist: Jonathan Amaya, PT, Cert MDT, OCS Visit Plan Frequency: 2x /Week Duration: 4 Weeks Plan: PLAN FOR MRI DETERMINE CERVICAL MYLOPATHY PT INTERVENTIONS ROM LEFT SHOULDER ,ISOMETRICS LEFT SHOULDER ,LUE STRENGTHENING ,POSTURAL/SCAPULAR EX'S /CERVICAL ROM AND MODALITIES NEEDED Subjective Subjective: This 79 y/o female presents to physical therapy for shoulder right and neck pain. Patient has left shoulder pain 3 weeks with decrease ability to raises left arm with weakness . Patient was referred to [facility] . Recommended PT left shoulder ROM/strengthening and wants MRI. PA found findings of Jenny's and brisk knee reflex an MRI is needed at this time to further assess for cervical myelopathy. X-rays show multilevel disc height loss worse at C4-7. There is a retrolisthesis of C4 and C5 with mild instability on dynamic views. There is also straightening of the normal cervical lordosis. Reviewed cervical spine CT from May 31 which showed C4-7 disc height loss and bilateral neural foraminal stenosis ,C5-6: Marked degree of disc space narrowing. Spondylosis. Uncovertebral arthrosis. Bilateral neural foraminal stenosis worse on the right side. Patient has pain lateral deltoid . Patient has no pain in left arm with neck motion. Patient has min pain left side neck. Aggravating factors raising arm OH ,self hygiene washing hair and combing hair ,ADLS. Alleviating factors rest. Patient denies paresthesia/tingling. Denies BABCOCK/tinnitus/nausea.Patient sleeping okay. Patient condition affects ADL's housework tasks. Patient goals to decrease pain increase strength SOCIAL: VOCATION: RETIRED Pain Left Shoulder: Pain Intensity (Out of 10): 1 Pain Intensity Range: 10 Objective Objective: POSTURE: mild forward posture rounded shoulders head forward PALAPTION: tender UT/levator NEURO: denies paresthesia/tingling ,reflexes 5-6-7 3/3 ,myotome weakness C5 ,patella tendon reflex hyperreflexia AROM: shoulder flexion/abduction < 70 degrees , PROM: shoulder flexion 150 degrees ,abduction 150 degrees ,ER 90 CERVICAL ROM: flexion silvia loss ,lateral flexion mod loss ,rotation mod loss ,extension mod loss MMT: peak force RTC infraspinatus/supraspinatus/deltoid 0 ,subscapularis 9.2 ,bicep 8.9 ( weak) ,tricep 4/5 ,wrist 4/5 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 STRENGTH: ( dynamometer) right/left 40# Special Tests C/S Radiculapathy - Left Upper limb tension test: Negative C/S Radiculapathy - Right Upper limb tension test: Negative C/S Radiculapathy - Left Spurlings: Negative C/S Radiculapathy - Right Spurlings: Negative C/S Radiculapathy - Left Cervical distraction: Negative C/S Radiculapathy - Right Cervical distraction: Negative Sharp Antione: Negative Vertebral Artery Test: Negative Alar Ligament Test: Negative L Shoulder External Rotation Lag Test - RC Tear: Positive L Shoulder Supine Impingement Test - RC Tear: Positive L Shoulder Drop Sign - IS Test: Positive L Shoulder Neer - Impingement: Positive L Shoulder Baptiste Thierno - Impingement: Negative L Shoulder Shrug Sign - OA/Adhesive Capsulitis: Positive Comments: but signs could be from cervical C-5-6 Balance/Special Test Scores Quick DASH Score: 56.8175 Goals Goal 1:: Patient to be I with HEP neck and shoulder Goal Time Frame: 4-6 Weeks Goal 2:: Patient to improve AROM shoulder flexion by 10-15 degrees to improve function Goal Time Frame: 4-6 Weeks Goal 3:: Patient to improve quick dash shoulder by 3-4 points to improve QOL Goal Time Frame: 4-6 Weeks Goal 4:: Patient to demonstrate 40% improvement with improved function Goal Time Frame: 4-6 Weeks Rehabilitation Potential Physical Therapy Diagnosis: This patient has left shoulder pain with weakness ,may have cervical myelopathy with findings from exam per PA thus will do MRI to differentiate cervical vs RTC due to weakness but has bicep weak as well thus will benefit from skilled PT to improve function of left shoulder Rehabilitation Potential: Fair Anticipated Interventions Patient/Client Instruction: Educate patient on: Condition and Plan of Care For the Purpose of:: To decrease pain, To increase ROM, To improve muscle performance and motor function, To improve ability to perform ADL's, To increase tolerance to activity/condition/position, To improve performance and independence with ADL's, To improve ability of physical actions for home/community/work/leisure, To improve health of tissue, To decrease soft tissue restriction, To increase flexibility/ROM and To improve tolerance to ADL's Therapeutic Exercise to Include: Strength training, Postural training, Flexibilty training, Active ROM and Scapular Strength/Stabilization For the Purpose of:: To decrease pain, To increase ROM, To improve muscle performance and motor function, To improve ability to perform ADL's, To increase tolerance to activity/condition/position, To improve ability of physical actions for home/community/work/leisure, To improve health of tissue, To decrease soft tissue restriction, To increase flexibility/ROM and To improve tolerance to ADL's TENS: Yes IF ES: Yes Cryotherapy (ice pack, ice massage): Yes Thermo therapy (hot pack): Yes Ultrasound (thermal/non thermal): Yes For the Purpose of:: To decrease pain, To increase ROM, To improve nutrient delivery to tissue, To increase oxygenation perfusion, To improve health of tissue and To decrease soft tissue restriction Text: Thank you for the opportunity to evaluate your patient. For Medicare and Medicare HMO plans, please review the plan of care and approve it. It will need to be FAXED BACK to us at [phone] for Medicare purposes. For Medicare only, by signing this I certify the plan of care. Please let me know if there are questions or concerns regarding this plan of care. Physician Signature: Date:
--- NOTE | 2024-08-16 14:54 | HP.PTDCNRP_ITS ---
Patient Information Patient Information: SILVINA NELSON was seen in my office for initial evaluation on 06/15/24. The following Plan of Care was established for this patient: POC Established Initial Frequency: 2x /Week Initial Duration: 4 Weeks Anticipated Interventions Patient/Client Instruction: Educate patient on: Condition and Plan of Care For the Purpose of:: To decrease pain, To increase ROM, To improve muscle performance and motor function, To improve ability to perform ADL's, To increase tolerance to activity/condition/position, To improve performance and indepe ndence with ADL's, To improve ability of physical actions for home/community/work/leisure, To improve health of tissue, To decrease soft tissue restriction, To increase flexibility/ROM and To improve tolerance to ADL's Therapeutic Exercise to Include: Strength training, Postural training, Flexibilty training, Active ROM and Scapular Strength/Stabilization For the Purpose of:: To decrease pain, To increase ROM, To improve muscle performance and motor function, To improve ability to perform ADL's, To increase tolerance to activity/condition/position, To improve ability of physical actions for home/community/work/leisure, To improve health of tissue, To decrease soft tissue restriction, To increase flexibility/ROM and To improve tolerance to ADL 's TENS: Yes IF ES: Yes Cryotherapy (ice pack, ice massage): Yes Thermo therapy (hot pack): Yes Ultrasound (thermal/non thermal): Yes For the Purpose of:: To decrease pain, To increase ROM, To improve nutrient delivery to tissue, To increase oxygenation perfusion, To improve health of tissue and To decrease soft tissue restriction Last Seen Last Seen: This patient was last seen in our office . Pertinent comments regarding their Physical therapy will appear below: Patient seen for PT for neck and shoulder pain for HEP thus d/c At this point I will be discontinuing this patient from physical therapy. I would be happy to see this patient again in the future if found appropriate by the physician. Thank you! Jonathan Amaya, PT, Cert MDT, OCS Balance/Gait/Functional tests Balance/Special Test Scores Quick DASH Score: [phone]
== END 2024-06-15 19:00 | disposition home or self-care (01) ==
LOC: PT 13:58
PROVIDERS: PCP Internal Medicine; Referring Provider Student in an Organized Health Care Education/Training Program; Visit Provider Student in an Organized Health Care Education/Training Program
DX: M50.30 Other cervical disc degeneration, unspecified cervical region (principal); M25.512 Pain in left shoulder
CPT/HCPCS: 97110; 97162

== ENCOUNTER 2024-06-19 12:50 | Day surgery (SDC) | payer MEDICARE, SELFPAY ==
--- NOTE | 2024-06-18 09:44 | PAT.ANESEVAL ---
Pre-Assessment Diagnosis/Proposed Procedure Planned Operative Procedure(s): COLONOSCOPY & EGD Anesthesia History Anesthesia History - market development trainer: Anesthesia History - market development trainer Hx Hospitalization No 06/18/24 09:27 Any Problems With Anesthesia No 06/18/24 09:27 Cholinesterase deficiency No 06/18/24 09:27 You/Your Family Experience No 06/18/24 09:27 fever (hyperthermia) with Relationship Recent Exposure to Contagious No 03/23/24 05:46 Disease Does patient have nerve No 06/18/24 09:27 stimulator Patient instructed to have device shut off --Does patient have Pacemaker or ICD? When Was Last Pacemaker Check QUESTION #4 FULL TEXT: You/Your Family Experience fever (hyperthermia) with Anesthesia Last Oral Intake Last Oral intake: Last Oral Intake NPO since Meds taken in AM with sips of water? Meds patient instructed to take am of surgery PONV PONV - market development trainer: PONV - market development trainer Female Yes 06/18/24 09:27 HX of Motion Sickness No 06/18/24 09:27 HX of N/V After Surgery No 06/18/24 09:27 Non-Smoker Yes 06/18/24 09:27 Duration of Surgery greater No 06/18/24 09:27 than 60 minutes Number of Risk Factors 2 06/18/24 09:27 PONV Score Moderate Risk 06/18/24 09:27 Height & Weight Height & Weight: Anesthesia: Height & Weight Height 5 ft 6 in 06/11/24 14:41 Respiratory Assessment Respiratory Assessment - market development trainer: Respiratory Tract Infection Hx - market development trainer Hx Respiratory Tract Infection No 06/18/24 09:27 STOP Sleep Apnea STOP Sleep Apnea - market development trainer: STOP Sleep Apnea - market development trainer Hx Hypertension Yes: CONTROLLED ON MED 06/18/24 09:27 Hx Sleep Apnea No 06/18/24 09:27 CPAP BIPAP Do you snore loudly (louder No 06/18/24 09:27 than talking or can be heard Do you often feel tired/ No 06/18/24 09:27 fatigued/ sleepy during daytime? Has anyone observed you stop No 06/18/24 09:27 breathing during sleep? STOP Results Negative 06/18/24 09:27 QUESTION #5 FULL TEXT : Do you snore loudly (louder than talking or can be heard through closed doors)? Tobacco Use History Tobacco Use History - market development trainer: Tobacco Use History - market development trainer Tobacco Use Smoking Status Current every day smoker 06/18/24 09:27 Hx Tobacco Use Yes 06/18/24 09:27 Years Smoking Packs Smoked per Day Smoking Cessation Date was within the last 15 years Hx Smoking Cessation Date Hx Smoking Cessation No 06/18/24 09:27 Counseling Hematologic Medial History Hematologic Hx - market development trainer: Hematologic Medical Hx - sheather Hx of Blood Transfusion Yes 06/18/24 09:27 Hx of Transfusion in last 3 Yes 06/18/24 09:27 Months Date of Last Transfusion (if 05/202406/18/24 09:27 within last 3 months) Ever experience any problems No 06/18/24 09:27 with transfusion(s)? Specify any problems Hx of Preganancy in last 3 No 06/18/24 09:27 Months Nurse Filling Out Transfusion VCHRISTIN 06/18/24 09:27 & Questions: Date: 06/18/24 06/18/24 09:27 Time: 06/18/24 09:27 Patient unable to answer at this time (ie. confused, unrespo /Reproduction History /Reproductive History - market development trainer: /Reproductive Hx- market development trainer Hx Now Gestational Age (in weeks): EDC: Hx Hx Para Hx [facility] Medical History (Updated 06/18/24 @ 09:27 by Cristy Sandoval) Anemia Pulmonary nodule Adrenal nodule High catecholamines Osteopenia Hypertension Type 2 diabetes mellitus Hyperlipidemia At risk for hemorrhage associated with anticoagulation therapy History of TIA (transient ischemic attack) Neck pain Wears glasses Anxiety Arthritis Leg cramps Restless legs History of ulceration History of GI bleed Smoker Shortness of breath on exertion History of pain when walking History of echocardiogram Hypertension Home Medications ?Medication ?Instructions ?Recorded ?Last Taken ?Type L.acidoph,paracasei,B.animalis 10 1 ea PO DAILY 07/27/15 Unknown History billion cell capsule clopidogrel 75 mg tablet 75 mg PO DAILY #30 TABLETS 07/28/15 06/17/24 Rx losartan 100 mg tablet (Cozaar) 100 mg PO DAILY 04/15/23 03/22/24 History metoprolol succinate 25 mg 25 mg PO DAILY 04/15/23 03/22/24 History tablet,extended release 24 hr sucralfate 1 gram tablet 1 g PO TID 02/18/24 Unknown History cholecalciferol (vitamin D3) 125 125 mcg PO DAILY 03/20/24 Unknown History mcg (5,000 unit) tablet (Vitamin D3) vitamin B12 1,000 mcg-folic acid 1 flaco sublingual DAILY 03/20/24 Unknown History 400 mcg sublingual lozenge pantoprazole 40 mg tablet,delayed 40 mg PO QDAY 06/11/24 Unknown History release magnesium gluconate 500 mg tablet 500 mg PO DAILY 06/18/24 Unknown History Allergy/AdvReac Type Severity Reaction Status Date / Time famotidine AdvReac Rash Verified 06/18/24 09:21 [id number] Reductase AdvReac Other Verified 06/18/24 09:21 Inhibitor Family History Mother Hypertension Alzheimer's disease Father Hypertension Heart disease Sister Breast cancer Dementia Alcohol abuse Brother Alcohol abuse CVA (cerebral vascular accident) Grandmother Diabetes Surgical History (Updated 06/18/24 @ 09:27 by Cristy Sandoval) H/O right breast biopsy History of toe surgery History of colonoscopy History of esophagogastroduodenoscopy (EGD) Social History Smoking Status: Current every day smoker tobacco type: cigarettes alcohol intake: never substance use type: does not use caffeine: No Audit: Pertinent Findings Pertinent Findings EKG Perinent findings: 05/31/2024. Sinus rhythm with PACs. 74 bpm. Septal infarct, age undetermined. Consult pertinent findings: Cardiology 04/17/2024. Paroxysmal atrial fibrillation. Sinus rhythm today on EKG. Adrenal nodule. Acute being evaluated by endocrinology. Hypertension chronic. Anemia acute. Recommendation Anesthesia Recommendation Anesthesia recommendation: OPTIMIZED for anesthesia
[2024-06-19] VITALS (7 sets, daily range): BP systolic 97–106; BP diastolic 56–67; PULSE 62–87; RESP 14–16; TEMP 36–36.8; O2SAT 96–100; BMI 21.3
--- NOTE | 2024-06-19 13:47 | PCM.PRE.AN2 ---
ASA Classification* ASA Classification ASA Classification: 3 Assessment & Plan Anesthesia* Anesthesia Assessment Anesthesia Assessment: Discussed sedation and/or anesthesia options, risks, benefits, and alternatives with patient/parents/legal guardian/POA. Questions invited. The patient/parents/legal guardian/POA seems to understand and agrees to proceed with anesthesia plan. Reviewed the physical assessment, medical history, allergy history and patient home medications list prior to surgery/procedure/anesthetic and documented any changes. Performed airway and anesthesia risk assessments. Anesthesia Type Anesthesia Type: General History Source History Obtained from:: Patient Anesthesia Focused Assessment* Temperature: 98.2 F Pulse Rate: 87 Blood Pressure: 105/67 Respiratory Rate: 16 Pulse Ox: 99 Oxygen Delivery Method: Room Air Airway Assessment Mouth opens: >3 cm Mallampati Score: II Teeth Condition: Caps/Crowns (all teeth crowns. Pt advised regarding risk of dental injury and accepts risk ) Neck Range of motion (ROM): Full ROM Focused Labs Anesthesia Preop lab: CBC WBC 7.5 K/mm3 (4.4-11.0) 05/31/24 15:05/31/24 RBC 4.02 M/mm3 (4.2-5.4) L 05/31/24 15:05/31/24 Hgb 10.7 g/dL (12.0-15.0) L 05/31/24 15:22 05/31/24 Hct 35.4 % (37-47) L 05/31/24 15:22 05/31/24 Plt Count 327 K/mm3 (150-450) 05/31/24 15:22 05/31/24 CHEMISTRY Potassium 3.7 mmol/L (3.5-5.1) 05/31/24 15:22 05/31/24 Sodium 141 mmol/L (136-145) 05/31/24 15:05/31/24 Magnesium 2.0 mg/dL (1.8-2.4) 07/28/15 02:07/28/15 BUN 11 mg/dL (7-18) 05/31/24 15:22 05/31/24 Creatinine 0.56 mg/dL (0.55-1.02) 05/31/24 15:05/31/24 Glucose 84 mg/dL (74-106) 05/31/24 15:22 05/31/24 TSH 2.13 uIU/mL (0.358-3.74) 04/30/20 13:00 04/30/20 COAG PT 13.5 SECONDS (11.7-14.9) 02/18/24 00:37 02/18/24 Pre-Assessment Diagnosis/Proposed Procedure Planned Operative Procedure(s): COLONOSCOPY & EGD Anesthesia History Anesthesia History - dragline oiler: Anesthesia History - dragline oiler Hx Hospitalization No 06/18/24 09:27 Any Problems With Anesthesia No 06/18/24 09:27 Cholinesterase deficiency No 06/18/24 09:27 You/Your Family Experience No 06/18/24 09:27 fever (hyperthermia) with Relationship Recent Exposure to Contagious No 06/19/24 13:21 Disease Does patient have nerve No 06/18/24 09:27 stimulator Patient instructed to have device shut off --Does patient have Pacemaker No 06/19/24 13:21 or ICD? When Was Last Pacemaker Check QUESTION #4 FULL TEXT: You/Your Family Experience fever (hyperthermia) with Anesthesia Any additional information?: No Last Oral Intake Last Oral intake: Last Oral Intake NPO since 09:00 06/19/24 13:21 Meds taken in AM with sips of water? Meds patient instructed to take am of surgery Any additional information?: No PONV PONV - dragline oiler: PONV - dragline oiler Female Yes 06/18/24 09:27 HX of Motion Sickness No 06/18/24 09:27 HX of N/V After Surgery No 06/18/24 09:27 Non-Smoker Yes 06/18/24 09:27 Duration of Surgery greater No 06/18/24 09:27 than 60 minutes Number of Risk Factors 2 06/18/24 09:27 PONV Score Moderate Risk 06/18/24 09:27 Any additional information?: No Height & Weight Height & Weight: Anesthesia: Height & Weight Height 5 ft 6 in 06/19/24 13:21 Weight: 60 kg 06/19/24 13:21 Body Mass Index (BMI) 21.3 06/19/24 13:21 Respiratory Assessment Respiratory Assessment - dragline oiler: Respiratory Tract Infection Hx - dragline oiler Hx Respiratory Tract Infection No 06/18/24 09:27 Any additional information?: No STOP Sleep Apnea STOP Sleep Apnea - dragline oiler: STOP Sleep Apnea - dragline oiler Hx Hypertension Yes: CONTROLLED ON MED 06/18/24 09:27 Hx Sleep Apnea No 06/18/24 09:27 CPAP BIPAP Do you snore loudly (louder No 06/18/24 09:27 than talking or can be heard Do you often feel tired/ No 06/18/24 09:27 fatigued/ sleepy during daytime? Has anyone observed you stop No 06/18/24 09:27 breathing during sleep? STOP Results Negative 06/18/24 09:27 QUESTION #5 FULL TEXT : Do you snore loudly (louder than talking or can be heard through closed doors)? Any additional information?: No Tobacco Use History Tobacco Use History - dragline oiler: Tobacco Use History - dragline oiler Tobacco Use Smoking Status Current every day smoker 06/18/24 09:27 Hx Tobacco Use Yes 06/18/24 09:27 Years Smoking Packs Smoked per Day Smoking Cessation Date was within the last 15 years Hx Smoking Cessation Date Hx Smoking Cessation No 06/18/24 09:27 Counseling Any additional information?: No Hematologic Medial History Hematologic Hx - dragline oiler: Hematologic Medical Hx - foreign language stenographer Hx of Blood Transfusion Yes 06/18/24 09:27 Hx of Transfusion in last 3 Yes 06/18/24 09:27 Months Date of Last Transfusion (if 05/202406/18/24 09:27 within last 3 months) Ever experience any problems No 06/18/24 09:27 with transfusion(s)? Specify any problems Hx of Preganancy in last 3 No 06/18/24 09:27 Months Nurse Filling Out Transfusion VCHRISTIN 06/18/24 09:27 & Questions: Date: 06/18/24 06/18/24 09:27 Time: 06/18/24 09:27 Patient unable to answer at this time (ie. confused, unrespo Any additional information?: No /Reproduction History /Reproductive History - dragline oiler: /Reproductive Hx- dragline oiler Hx Now Gestational Age (in weeks): EDC: Hx Hx Para Hx Section SAB Any additional information?: No PFSH Medical History Anemia Pulmonary nodule Adrenal nodule High catecholamines Osteopenia Hypertension Type 2 diabetes mellitus Hyperlipidemia At risk for hemorrhage associated with anticoagulation therapy History of TIA (transient ischemic attack) Neck pain Wears glasses Anxiety Arthritis Leg cramps Restless legs History of ulceration History of GI bleed Smoker Shortness of breath on exertion History of pain when walking History of echocardiogram Hypertension Home Medications ?Medication ?Instructions ?Recorded ?Last Taken ?Type L.acidoph,paracasei,B.animalis 10 1 ea PO DAILY 07/27/15 06/18/24 History billion cell capsule clopidogrel 75 mg tablet 75 mg PO DAILY #30 TABLETS 07/28/15 03/17/24 Rx losartan 100 mg tablet (Cozaar) 100 mg PO DAILY 04/15/23 06/19/24 History metoprolol succinate 25 mg 25 mg PO DAILY 04/15/23 03/22/24 History tablet,extended release 24 hr sucralfate 1 gram tablet 1 g PO TID 02/18/24 06/18/24 History cholecalciferol (vitamin D3) 125 125 mcg PO DAILY 03/20/24 06/18/24 History mcg (5,000 unit) tablet (Vitamin D3) vitamin B12 1,000 mcg-folic acid 1 flaco sublingual DAILY 03/20/24 06/19/24 History 400 mcg sublingual lozenge pantoprazole 40 mg tablet,delayed 40 mg PO QDAY 06/11/24 06/18/24 History release magnesium gluconate 500 mg tablet 500 mg PO DAILY 06/18/24 06/19/24 History Allergy/AdvReac Type Severity Reaction Status Date / Time [id number] Reductase AdvReac Other Verified 06/19/24 13:18 Inhibitor Family History Mother Hypertension Alzheimer's disease Father Hypertension Heart disease Sister Breast cancer Dementia Alcohol abuse Brother Alcohol abuse CVA (cerebral vascular accident) Grandmother Diabetes Surgical History (Updated 06/18/24 @ 09:27 by Cristy Sandoval) H/O right breast biopsy History of toe surgery History of colonoscopy History of esophagogastroduodenoscopy (EGD) Social History Smoking Status: Current every day smoker tobacco type: cigarettes alcohol intake: never substance use type: does not use caffeine: No Review of Systems (Anesthesia) ROS Narrative System reviewed and no additional complaints, except as documented. Physical Exam Const alert, oriented x3 and average body habitus Resp normal respiratory effort, normal air movement and clear to auscultation bilaterally Cardio regular rate, regular rhythm, no murmurs and diaphoretic
--- NOTE | 2024-06-19 14:00 | EGD_PTH ---
PATIENT: SILVINA NELSON LOC: EN U#:[id number] AGE/SX: 79/F ROOM: RE06/19/[address]: Dr. Roby Stout DO : 1945 BED: DIS: 06/19/2024 SPEC #: [id number] RECD: 06/20/24 11:18 STATUS: DANUTA REOlu #: [id number] ANDREW: 06/19/24 14:[address]: Roby Stout DEPT: SURGICAL PATHOLOGY RECD BY: Kobi Ch ENTERED: 06/20/24 11:18 SP TYPE: EGD BIOPSY UVALDO DR: Dr. Hitesh Melton MD Tissues: A - Gastric mucous membrane B - Cecum, NOS Procedures: Surgery Specimen Level IV HEADER OPERATION: Colonoscopy with biopsy and APC, EGD with biopsy and hemostasis PRE-OP DIAGNOSIS: Anemia TISSUE SUBMITTED: A- Gastric antral polyp biopsy, B- Cecal polyp biopsy MICROSCOPIC DIAGNOSIS A: STOMACH, ANTRAL POLYP, BIOPSY: * Polypoid foveolar hyperplasia. B: COLON, CECAL POLYP, BIOPSY: * Sessile serrated lesion. MICROSCOPIC DESCRIPTION Slides are reviewed. GROSS DESCRIPTION A. Received in fixative is one container labeled with the patient's name and designated Gastric antral polyp biopsy. The specimen consists of multiple irregular fragments of light meyer soft tissue that in aggregate measure 1.5 x 0.3 x 0.2 cm. The specimen is totally submitted in one cassette. B. Received in fixative is one container labeled with the patient's name and designated Cecal polyp biopsy. The specimen consists of multiple irregular fragments of light meyer soft tissue that in aggregate measure 1.6 x 0.2 x 0.2 cm. The specimen is totally submitted in one cassette. 06/20/2024 CPT:54403c3
--- NOTE | 2024-06-19 14:08 | PCM.HP.STD ---
HPI - General General Date of Admission: 06/19/24 Date of Service: 06/19/24 Chief Complaint: anemia HPI Narrative SILVINA NELSON, is a 79 F who presents for colonoscopy to evaluate her for her persistent anemia. - seen in the ambulatory center today with her sister 79y/o female presents for follow-up LABS 04/06/2024 HGB 7.7, Fe 14 03/20/2024 HGB 8.4 03/17/2024 HGB 5.9 EGD 03/23/2024 H. pylori negative, duodenal biopsy with mild non-specific chronic inflammation - Normal esophagus. - Non-bleeding gastric ulcers with no stigmata of bleeding. Biopsied. - Duodenal mucosal changes seen, diagnostic of celiac disease. Biopsied. Repeat EGD in 3-4 months (June 2024) Colon 06/19/2024 Hematology consult - Dr. Mariscal feels her anemia is secondary to Fe deficiency - she received her first Fe yesterday, will complete weekly for a total 4 infusions she will f/u with Dr. Mariscal to discuss PO daily Fe Continue pantoprazole 40mg BID and sucralfate 1g TID PFSH Medical History Anemia Pulmonary nodule Adrenal nodule High catecholamines Osteopenia Hypertension Type 2 diabetes mellitus Hyperlipidemia At risk for hemorrhage associated with anticoagulation therapy History of TIA (transient ischemic attack) Neck pain Wears glasses Anxiety Arthritis Leg cramps Restless legs History of ulceration History of GI bleed Smoker Shortness of breath on exertion History of pain when walking History of echocardiogram Hypertension Home Medications ?Medication ?Instructions ?Recorded ?Last Taken ?Type L.acidoph,paracasei,B.animalis 10 1 ea PO DAILY 07/27/15 06/18/24 History billion cell capsule clopidogrel 75 mg tablet 75 mg PO DAILY #30 TABLETS 07/28/15 03/17/24 Rx losartan 100 mg tablet (Cozaar) 100 mg PO DAILY 04/15/23 06/19/24 History metoprolol succinate 25 mg 25 mg PO DAILY 04/15/23 03/22/24 History tablet,extended release 24 hr sucralfate 1 gram tablet 1 g PO TID 02/18/24 06/18/24 History cholecalciferol (vitamin D3) 125 125 mcg PO DAILY 03/20/24 06/18/24 History mcg (5,000 unit) tablet (Vitamin D3) vitamin B12 1,000 mcg-folic acid 1 flaco sublingual DAILY 03/20/24 06/19/24 History 400 mcg sublingual lozenge pantoprazole 40 mg tablet,delayed 40 mg PO QDAY 06/11/24 06/18/24 History release magnesium gluconate 500 mg tablet 500 mg PO DAILY 06/18/24 06/19/24 History Allergy/AdvReac Type Severity Reaction Status Date / Time [id number] Reductase AdvReac Other Verified 06/19/24 13:18 Inhibitor Family History Mother Hypertension Alzheimer's disease Father Hypertension Heart disease Sister Breast cancer Dementia Alcohol abuse Brother Alcohol abuse CVA (cerebral vascular accident) Grandmother Diabetes Surgical History H/O right breast biopsy History of toe surgery History of colonoscopy History of esophagogastroduodenoscopy (EGD) Social History Smoking Status: Current every day smoker tobacco type: cigarettes alcohol intake: never substance use type: does not use caffeine: No ROS Constitutional Constitutional: Denies fatigue, fever(s), poor appetite, weight gain or weight loss Gastrointestinal Gastrointestinal: Denies belching, bloating, change in bowel habits, change in stool character, chewing difficulty, coffee ground emesis, constipation, cramping, diarrhea, dyspepsia, dysphagia, early satiety, excessive flatus, fecal incontinence, heartburn, hematemesis, hematochezia, hemorrhoids, loose stools, melena, nausea, odynophagia, rectal bleeding, tenesmus, vomiting or weight changes Vital Signs Vital Signs Vital Signs: 06/19/24 13:21 06/19/24 13:21 06/19/24 13:50 Temperature 98.2 F 98.2 F Temperature Source Temporal Pulse Rate 87 87 Respiratory Rate 16 16 Respiratory Pattern Normal Blood Pressure 105/67 105/67 Blood Pressure Mean 79 Blood Pressure Source Monitor Blood Pressure Position Sitting Blood Pressure Location Right Arm Pulse Ox 99 99 Oxygen Delivery Method Room Air Room Air Weight Weight: 132 lb 4.438 oz Body Mass Index (BMI) 21.3 Physical Exam Const alert, oriented x3, no apparent distress and healthy appearing General Appearance: cooperative GI normal to inspection, nondistended, normoactive bowel sounds, soft to palpation, non-tender and non-distended Percussion: normal to percussion Rectal Exam: deferred Assessment & Plan Assessment/Plan (1) Anemia: QUALIFIERS: Anemia type: iron deficiency Iron deficiency anemia type: chronic blood loss Qualified Code(s): D50.0 - Iron deficiency anemia secondary to blood loss (chronic) PLAN: Assessment and Plan Assessment and Plan (1) Anemia: Status: Acute Qualifiers: Anemia type: iron deficiency Iron deficiency anemia type: chronic blood loss Qualified Code(s): D50.0 - Iron deficiency anemia secondary to blood loss (chronic) Plan 79y/o female presents for follow-up of anemia. EGD performed 03/23/2024 revealed non-bleeding gastric ulcers, biopsies were negative for H. pylori and duodenal biopsies were consistent with non-specific chronic inflammation. She remains on pantoprazole 40mg BID and sucralfate TID. She will continue current therapy and repeat EGD June 2024. With ongoing Fe deficiency anemia it is also recommended she proceed with colonoscopy and this has also been scheduled for June 2024. She was recently seen by hematology (Dr. Carpio), and she has completed one of four weekly Fe infusions. She remains on PO Fe and will reach out to Dr. Carpio to discuss discontinuing. She was recently seen by cardiology (Dr. Dozier) and anticoagulation has been discontinued at least until anemia has resolved. She brings with her today a heart monitor she recently received in the mail with request for assistance in application. I have advised her she will need to reach out to the supplying complaining for further instruction on application if needed. Patient Instructions: Continue pantoprazole 40mg twice a day Continue sucralfate 1g three times a day Contact Dr. Carpio and discuss PO Fe that she is presently taking now that she has started IV Iron infusions Proceed with colonoscopy as scheduled in June - will also plan to complete EGD at this time as well Contact company which provided you the heart monitor to obtain clearer instructions on application of monitor and answer any questions you may have Follow-up with Dr. Carpio for HGB monitoring Plan Details Follow Up: 4 Months
--- NOTE | 2024-06-19 15:29 | OP.EGD_ITS ---
Patient Name: Mis Jackson Procedure Date: 06/19/2024 2:36 PM Date of : 1945 Age: 79 Procedure: Upper GI endoscopy Indications: Iron deficiency anemia Providers: Roby Stout DO Referring MD: Hietsh Melton Medicines: Monitored Anesthesia Care Patient Profile: This is a 79 year old female. Refer to note in patient chart for documentation of history and physical. Patient has symptoms. Her most recent EGD for ulcer treatment was within the past six months. Complications: No immediate complications. Procedure: Pre-Anesthesia Assessment: - Prior to the procedure, a History and Physical was performed, and patient medications and allergies were reviewed. The patient is competent. The risks and benefits of the procedure and the sedation options and risks were discussed with the patient. All questions were answered and informed consent was obtained. Patient identification and proposed procedure were verified by the physician in the pre-procedure area. Mental Status Examination: alert and oriented. Airway Examination: normal oropharyngeal airway and neck mobility. Respiratory Examination: clear to auscultation. CV Examination: normal. ASA Grade Assessment: II - A patient with mild systemic disease. After reviewing the risks and benefits, the patient was deemed in satisfactory condition to undergo the procedure. The anesthesia plan was to use monitored anesthesia care (MAC). Immediately prior to administration of medications, the patient was re-assessed for adequacy to receive sedatives. The heart rate, respiratory rate, oxygen saturations, blood pressure, adequacy of pulmonary ventilation, and response to care were monitored throughout the procedure. The physical status of the patient was re-assessed after the procedure. After obtaining informed consent, the endoscope was passed under direct vision. Throughout the procedure, the patient's blood pressure, pulse, and oxygen saturations were monitored continuously. The colonoscope was introduced through the mouth, and advanced to the jejunum. Small bowel enteroscopy was deemed necessary. The upper GI endoscopy was accomplished without difficulty. The patient tolerated the procedure well. Scope In: 2:49:08 PM Scope Out: 2:54:57 PM Total Procedure Duration Time 0 hours 5 minutes 49 seconds Findings: The examined esophagus was normal. A single 5 mm polyp with no bleeding was found. The polyp was removed with a jumbo cold forceps. Resection and retrieval were complete. Verification of patient identification for the specimen was done. Estimated blood loss was minimal. Seven 5 mm angiodysplastic lesions with bleeding were found in the third portion of the duodenum and in the fourth portion of the duodenum. Coagulation for hemostasis using heater probe was successful. Estimated blood loss was minimal. Three 5 mm angiodysplastic lesions without bleeding were found in the jejunum. Coagulation for bleeding prevention using heater probe was successful. Estimated blood loss was minimal. Impression: - Normal esophagus. - Esophageal polyp(s) were found. Resected and retrieved. 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 Treated with a heater probe. - Three non-bleeding angiodysplastic lesions in the jejunum. Treated with a heater probe. Recommendation: - Discharge patient to home. - Resume previous diet. - Continue present medications. - Await pathology results. Procedure Code(s): --- Professional --- 03535, 59, Small intestinal endoscopy, enteroscopy beyond second portion of duodenum, not including ileum; with control of bleeding (eg, injection, bipolar cautery, unipolar cautery, laser, heater probe, stapler, plasma vocational placement specialist) 90564, 51, Small intestinal endoscopy, enteroscopy beyond second portion of duodenum, not including ileum; with biopsy, single or multiple CPT copyright 2021 [employer]. All rights reserved. The codes documented in this report are preliminary and upon remote coders review may be revised to meet current compliance requirements. Roby Stout DO 06/19/2024 3:29:28 PM This report has been signed electronically. Number of Addenda: 0 Note Initiated On: 06/19/2024 2:36 PM
--- NOTE | 2024-06-19 15:30 | OP.CCLET_ITS ---
06/19/2024 Hitesh Melton [address] [place] [address] Re : Upper GI endoscopy procedure for Mis Oconnorlesvia Dear Dr. Melton This procedure was performed on Wednesday, June 19, 2024. My impressions and recommendations are as follows: Impressions : - Normal esophagus. - Esophageal polyp(s) were found. Resected and retrieved. 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 Treated with a heater probe. - Three non-bleeding angiodysplastic lesions in the jejunum. Treated with a heater probe. Recommendations : - Discharge patient to home. - Resume previous diet. - Continue present medications. - Await pathology results. My findings are described in the full procedure note, which is enclosed. If I can be of further assistance, please feel free to contact me at . Sincerely, Roby Stout, 06/19/2024 3:29:28 PM This report has been signed electronically.
--- NOTE | 2024-06-19 15:34 | OP.COLON_ITS ---
Patient Name: Mis Jackson Procedure Date: 06/19/2024 2:55 PM Date of : 1945 Age: 79 Procedure: Colonoscopy Indications: Iron deficiency anemia Providers: DO Thanh Rivera MD: Hitesh Melton Medicines: Monitored Anesthesia Care Patient Profile: This is a 79 year old female. Refer to note in patient chart for documentation of history and physical. Patient has symptoms. Her most recent EGD for ulcer treatment was within the past six months. Last Colonoscopy: more than 10 years ago. Complications: No immediate complications. Procedure: Pre-Anesthesia Assessment: - Prior to the procedure, a History and Physical was performed, and patient medications and allergies were reviewed. The patient is competent. The risks and benefits of the procedure and the sedation options and risks were discussed with the patient. All questions were answered and informed consent was obtained. Patient identification and proposed procedure were verified by the physician in the pre-procedure area. Mental Status Examination: alert and oriented. Airway Examination: normal oropharyngeal airway and neck mobility. Respiratory Examination: clear to auscultation. CV Examination: normal. ASA Grade Assessment: II - A patient with mild systemic disease. After reviewing the risks and benefits, the patient was deemed in satisfactory condition to undergo the procedure. The anesthesia plan was to use monitored anesthesia care (MAC). Immediately prior to administration of medications, the patient was re-assessed for adequacy to receive sedatives. The heart rate, respiratory rate, oxygen saturations, blood pressure, adequacy of pulmonary ventilation, and response to care were monitored throughout the procedure. The physical status of the patient was re-assessed after the procedure. After I obtained informed consent, the scope was passed under direct vision. Throughout the procedure, the patient's blood pressure, pulse, and oxygen saturations were monitored continuously. The colonoscope was introduced through the anus and advanced to the terminal ileum. The colonoscopy was performed without difficulty. The patient tolerated the procedure well. The quality of the bowel preparation was adequate. The ileocecal valve, appendiceal orifice, and rectum were photographed. Scope In: 3:00:13 PM Scope Withdrawal Time 0 hours 14 minutes 51 seconds Scope Out: 3:20:01 PM Total Procedure Duration Time 0 hours 19 minutes 48 seconds Findings: The perianal and digital rectal examinations were normal. Multiple small-mouthed diverticula were found in the recto-sigmoid colon and sigmoid colon. A 7 mm polyp was found in the cecum. The polyp was sessile. The polyp was removed with a jumbo cold forceps. Resection and retrieval were complete. Verification of patient identification for the specimen was done. Estimated blood loss was minimal. 12 large localized angiodysplastic lesions with bleeding were found at the splenic flexure, in the transverse colon, at the hepatic flexure, in the ascending colon and in the cecum. Coagulation for bleeding prevention using argon plasma at 0.3 liters/minute and 20 casas was successful. Estimated blood loss was minimal. The exam was otherwise without abnormality on direct and retroflexion views. Impression: - Diverticulosis in the recto-sigmoid colon and in the sigmoid colon. - One 7 mm polyp in the cecum, removed with a jumbo cold forceps. Resected and retrieved. 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 Treated with argon plasma coagulation (APC). - The examination was otherwise normal on direct and retroflexion views. Recommendation: - Discharge patient to home. - Resume previous diet. - Continue present medications. - Await pathology results. - Repeat colonoscopy (date not yet determined). Procedure Code(s): --- Professional --- 38390, 59, Colonoscopy, flexible; with control of bleeding, any method 67385, Colonoscopy, flexible; with biopsy, single or multiple CPT copyright 2021 [employer]. All rights reserved. The codes documented in this report are preliminary and upon pharmacist's aide review may be revised to meet current compliance requirements. Roby Stout DO 06/19/2024 3:34:30 PM This report has been signed electronically. Number of Addenda: 0 Note Initiated On: 06/19/2024 2:55 PM
--- NOTE | 2024-06-19 15:34 | PCM.POST.ANE ---
Anesthesia: Postop Eval I Current Vital Signs Temperature: 97 F Pulse Rate: 64 Blood Pressure: 106/58 Respiratory Rate: 16 Pulse Ox: 100 Oxygen Delivery Method: Room Air Assessment Airway patent: Yes Spontaneous unlabored respirations: Yes Mental status: Awake and Calm nausea: No Vomiting: No Anesthesia Complication: Yes Anesthesia Complication Comment:: vagal bradycardia and hypotension, tx with ephedrine Fluid Hydration Crystalloid volume administer (ml): 90 Total IV fluid infused: 90 Progress Note Anesthesia document: Postop Eval 1 completed: Yes
--- NOTE | 2024-06-19 15:35 | OP.CCLET_ITS ---
06/19/2024 Hitesh Melton [address] [place] [address] Re : Colonoscopy procedure for Mis Jackson Dear Dr. Melton This procedure was performed on Wednesday, June 19, 2024. My impressions and recommendations are as follows: Impressions : - Diverticulosis in the recto-sigmoid colon and in the sigmoid colon. - One 7 mm polyp in the cecum, removed with a jumbo cold forceps. Resected and retrieved. 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 Treated with argon plasma coagulation (APC). - The examination was otherwise normal on direct and retroflexion views. Recommendations : - Discharge patient to home. - Resume previous diet. - Continue present medications. - Await pathology results. - Repeat colonoscopy (date not yet determined). My findings are described in the full procedure note, which is enclosed. If I can be of further assistance, please feel free to contact me at . Sincerely, Roby Stout, 06/19/2024 3:34:30 PM This report has been signed electronically.
--- NOTE | 2024-06-19 17:12 | PCM.POSTANE2 ---
Anesthesia Postop Eval I Sum Postop Eval Completion status Anesthesia document: Postop Eval 1 completed: Yes Anesthesia Postop Eval I Summary Anesthesia Postop Eval I Summary: Anesthesia Postop Eval I: Assessment Summary Airway patent Yes 06/19/24 15:35 [email or web address] Spontaneous unlabored Yes 06/19/24 15:35 [email or web address] respirations Mental status Awake,Calm 06/19/24 15:35 [email or web address] nausea No 06/19/24 15:35 [email or web address] Vomiting No 06/19/24 15:35 [email or web address] Anesthesia Postop Eval I: Fluid Summary Crystalloid volume administer 90 06/19/24 15:35 [email or web address] (ml) Colloids volume administered ( ml) Blood Product volume administered (ml) Total IV fluid infused 90 06/19/24 15:35 [email or web address] Anesthesia Postop Eval I: Summary Notes Anesthesia Complication Yes 06/19/24 15:35 [email or web address] Anesthesia Complication vagal bradycardia 06/19/24 15:35 [email or web address] Comment: and hypotension, tx with ephedrine Post-operative progress note Anesthesia: Postop Eval II Evaluation Mental status: Awake Pain Level: 0 nausea: No Vomiting: No Complications Anesthesia Complication: No
== END 2024-06-19 16:26 | disposition home or self-care (01) ==
LOC: EN 12:53 → AC 12:54
PROVIDERS: PCP Internal Medicine; Referring Provider Internal Medicine; Visit Provider Internal Medicine Gastroenterology
PROC: 0DJD8ZZ Inspection of Lower Intestinal Tract, Via Natural or Artificial Opening Endoscopic (ICD-10-PCS; CPT 45378; principal; 2024-06-19 13:55)
DX: K55.21 Angiodysplasia of colon with hemorrhage (principal); E11.9 Type 2 diabetes mellitus without complications; D50.0 Iron deficiency anemia secondary to blood loss (chronic); K57.30 Diverticulosis of large intestine without perforation or abscess without bleeding; I10 Essential (primary) hypertension; E78.5 Hyperlipidemia, unspecified; K31.811 Angiodysplasia of stomach and duodenum with bleeding; D12.0 Benign neoplasm of cecum; K22.81 Esophageal polyp; K31.7 Polyp of stomach and duodenum; F17.210 Nicotine dependence, cigarettes, uncomplicated; Z79.02 Long term (current) use of antithrombotics/antiplatelets; Z79.899 Other long term (current) drug therapy; Z86.73 Personal history of transient ischemic attack (TIA), and cerebral infarction without residual deficits
CPT/HCPCS: 45382; 45380; 43239; 43255; 88305; J2405

== ENCOUNTER 2024-06-25 13:06 | Emergency (ER) | payer MEDICARE, SELFPAY ==
[2024-06-25 13:07] VITALS: BP 155/93; PULSE 99; RESP 15; TEMP 36.7; O2SAT 98; BMI 20.9
--- NOTE | 2024-06-25 15:34 | ED.RN ---
PT STATED SHE FELT FINE BUT WAS CURIOUS ABOUT HER BLOOD COUNTS. PT ASKED IF SHE LEFT IF THERE WAS A CHARGE. EXPLAINED TO PT HOW PEOPLE GO BACK FROM THE WAITING ROOM AND PT WAS VERY UNDERSTANDING. PT STATED SHE WAS GOING TO ASK HER SISTER AND MAYBE SHE WOULD LEAVE. PT THEN CAME AND SAID THEY WERE LEAVING AND HER SISTER MADE THE COMMENT IT WASN'T BUSY WHEN THEY CAME. EXPLAINED TO HER IT WAS FULL IN THE BACK AND THEN CONTINUED TO FILL UP IN THE WAITING ROOM. SISTER THEN SAID THAT THERE ARE ALOT OF NEGATIVES HERE AND VERY UNPROFESSIONAL. WHEN THIS NURSE ASKED HER WHAT SHE MEANT SHE DID NOT RESPOND EXCEPT TO SAY A LOT OF NEGATIVES.
== END 2024-06-25 15:56 | disposition left against medical advice (07) ==
LOC: ED 15:56
PROVIDERS: PCP Internal Medicine
DX: K92.1 Melena (principal); Z53.21 Procedure and treatment not carried out due to patient leaving prior to being seen by health care provider

== ENCOUNTER 2024-11-28 17:08 | Emergency (ER) | payer MEDICARE, SELFPAY ==
[2024-11-28 17:09] VITALS: BP 152/101; PULSE 87; RESP 16; TEMP 36.6; O2SAT 100; BMI 20.8
--- NOTE | 2024-11-28 17:25 | EX.ED.DYSGE1 ---
HPI History of Present Illness Chief Complaint: Dental Detail of Chief Complaint: Concern for dental infection Informant: patient Narrative Narrative: Patient presents the emergency department with concern about a dental abscess. Patient states that she had her left upper tooth years ago had a root canal and subsequently had a Put on that tooth. She had noticed some foul taste in her mouth and went to the dentist and thought she had an issue to her left lower jaw but was told that everything looked okay. Her hygienist then noticed a crack in her crown. The crown apparently was then removed. Patient was referred to another dentist to be seen and is scheduled to have some sort of a surgical procedure on the tooth next month. Patient then started having some discomfort in her left shoulder and in her left hip. She thought maybe the infection was spreading to her bones. She then became concerned that she may be getting septic. She has had no fever. She has had no chills or sweats. She was written a prescription by the dentist for an antibiotic but not to start it until the day before the procedure. The procedure and is in about 3 weeks. [facility] Medical History Anemia Pulmonary nodule Adrenal nodule High catecholamines Osteopenia Hypertension Type 2 diabetes mellitus Hyperlipidemia At risk for hemorrhage associated with anticoagulation therapy History of TIA (transient ischemic attack) Neck pain Wears glasses Anxiety Arthritis Leg cramps Restless legs History of ulceration History of GI bleed Smoker Shortness of breath on exertion History of pain when walking History of echocardiogram Hypertension Home Medications ?Medication ?Instructions ?Recorded ?Last Taken ?Type L.acidoph,paracasei,B.animalis 10 1 ea PO DAILY 07/27/15 06/18/24 History billion cell capsule clopidogrel 75 mg tablet 75 mg PO DAILY #30 TABLETS 07/28/15 03/17/24 Rx losartan 100 mg tablet (Cozaar) 100 mg PO DAILY 04/15/23 06/19/24 History metoprolol succinate 25 mg 25 mg PO DAILY 04/15/23 03/22/24 History tablet,extended release 24 hr sucralfate 1 gram tablet 1 g PO TID 02/18/24 06/18/24 History cholecalciferol (vitamin D3) 125 125 mcg PO DAILY 03/20/24 06/18/24 History mcg (5,000 unit) tablet (Vitamin D3) vitamin B12 1,000 mcg-folic acid 1 flaco sublingual DAILY 03/20/24 06/19/24 History 400 mcg sublingual lozenge pantoprazole 40 mg tablet,delayed 40 mg PO QDAY 06/11/24 06/18/24 History release magnesium gluconate 500 mg tablet 500 mg PO DAILY 06/18/24 06/19/24 History Allergy/AdvReac Type Severity Reaction Status Date / Time Dxuveus-OXC-ToI Reductase AdvReac Other Verified 11/28/24 17:26 Inhibitor Family History Mother Hypertension Alzheimer's disease Father Hypertension Heart disease Sister Breast cancer Dementia Alcohol abuse Brother Alcohol abuse CVA (cerebral vascular accident) Grandmother Diabetes Surgical History H/O right breast biopsy History of toe surgery History of colonoscopy History of esophagogastroduodenoscopy (EGD) Social History Smoking Status: Current every day smoker tobacco type: cigarettes alcohol intake: never substance use type: does not use caffeine: No ROS ROS ED Review of Systems ROS Unobtainable: other Constitutional Constitutional ED: Reports lethargy; Denies chills, fever(s), sweats or weight loss Eyes Eyes: Denies blurry vision, change in vision or diplopia ENT ENT ED: Denies rhinorrhea or sore throat Cardiovascular Cardiovascular: Denies chest pain, orthopnea or racing heartbeat Respiratory/Chest Respiratory/Chest: Denies cough, dyspnea, dyspnea on exertion, orthopnea or sputum Gastrointestinal Gastrointestinal: Denies abdominal pain, diarrhea, nausea or vomiting Genitourinary Genitourinary ED: Denies dysuria, hematuria or urinary frequency Musculoskeletal Musculoskeletal: Reports other Details: Left shoulder pain, left hip pain ; Denies arthralgias, back pain, myalgias or neck pain Integumentary Denies abscess, Abrasions or rash Neurologic Neurologic: Denies headache(s) or weakness Psychiatric Psychiatric: Denies anxiety, depression or suicidal thoughts Endocrine Endocrinology: Denies polydipsia, polyphagia or polyuria Hematologic/Lymphatic Hematologic/Lymphatic: Denies easy bleeding, easy bruising or lymphadenopathy Allergic/Immunologic Allergic/Immunologic ED: Denies mouth swelling, tongue swelling or urticaria EXAM Physical Exam Const Vital Signs: 11/28/24 17:09 11/28/24 18:45 Temperature 97.8 F 97.4 F L Temperature Source Temporal Pulse Rate 87 88 Respiratory Rate 16 16 Blood Pressure 152/101 H 149/90 H Blood Pressure Mean 118 109 Pulse Ox 100 97 Oxygen Delivery Method Room Air Positive well nourished and well developed General Appearance ED: well developed and NAD HEENT Reports TM's clear and moist mucous membranes HEENT Narrative: Dentition-patient has no evidence of dental abscess. Left upper tooth #14 worn down the gumline. There is no drainage or gingival erythema or abscess. There is no facial erythema or cellulitis. There is no facial swelling. normocephalic and atraumatic; Negative for trauma or tenderness Tympanic Membrane ED: Yes TM's clear Eyes PERRL and EOMs intact bilaterally General Eye ED: Negative for pale conjunctiva or scleral icterus Neck no lymphadenopathy, supple and no JVD General: Negative for tenderness Chest Wall inspection of chest normal and palpation of chest normal Chest: Negative for tenderness Resp normal respiratory effort and clear to auscultation bilaterally Effort and Inspection: Negative for respiratory distress or pain with movement Auscultation: Negative for rhonchi, wheezes or diminished lung sounds Cardio regular rate, regular rhythm, S1 normal heart sound, S2 normal heart sound and no murmurs Peripheral Pulses: pulses 2+ throughout GI normal to inspection, nondistended, normoactive bowel sounds, soft to palpation, non-tender, non-distended and no masses Back/Spine no CVA tenderness and no thoracic nor lumbar tenderness Extremity normal to inspection Extremity Narrative: Evaluation of the left shoulder reveals no significant pain with range of motion. There there is no redness or warmth noted. She is neurovascular intact distally. Evaluation of the left hip reveals no tenderness on exam. Again there is no erythema or warmth. No shortening or rotational deformity. Neurovascularly intact. General Extremety ED: Negative for edema General Extremity: Negative for edema Neuro oriented x3, CN's II-XII intact bilaterally, no sensory deficits noted and gait normal Sensorium / Orientation: awake, alert, oriented to person, oriented to place and oriented to time Motor Exam: strength 5/5 throughout and strength abnormal Psych mental status grossly normal Skin no rashes or lesions noted and no wounds MDM MDM MDM Narrative Medical decision making narrative: Patient presents with concern for spreading infection from suspected dental abscess. Clinically she looks well. There is no evidence of infection on exam or abscess. She is afebrile. CBC with differential normal white count of 10.8 with hemoglobin 14 platelet count of 280. Chemistries unremarkable. I did obtain a CBC mostly because she is has had history of anemia with multiple transfusions and iron infusions. At this point do not see any evidence for infection. Recommended she follow-up with her dentist and follow instructions of dentists. Patient not actually having any dental pain as she has had root canal to that tooth. Lab Data Attestation: I reviewed the patient's lab results. Labs: Laboratory Results - last 24 hr 11/28/24 17:33 WBC 10.8 RBC 4.42 Hgb 14.1 Hct 41.3 MCV 93.4 MCH 31.9 MCHC 34.1 RDW Std Deviation 61.3 H RDW Coeff of Amada 17.9 H Plt Count 280 MPV 10.8 Immature Gran % (Auto) 0.400 Neut % (Auto) 78.3 H Lymph % (Auto) 12.4 L Webb % (Auto) 7.4 Eos % (Auto) 0.8 Baso % (Auto) 0.7 Absolute Neuts (auto) 8.4 H Absolute Lymphs (auto) 1.33 Nucleated RBC % 0 Sodium 140 Potassium 4.6 Chloride 105 Carbon Dioxide 21.3 Anion Gap 14 BUN 12 Creatinine 0.62 L Estim Creat Clear Calc 53.62 Est GFR (MDRD) Non-Af 91 BUN/Creatinine Ratio 19.5 Glucose 100 H Calcium 10.3 Discharge Plan Triage Chief Complaint: Dental ED Provider: Doron Paez Dx/Rx/DC Orders Clinical Impression: Arthralgia Instructions: ED Arthralgia Prescriptions: No Action pantoprazole 40 mg tablet,delayed release (DR/EC) 40 mg PO QDAY L.acidoph,paracasei,B.animalis 1 EACH capsule 1 ea PO DAILY Patient Comments: STOMACH clopidogrel 75 MG tablet 75 mg PO DAILY Qty: 30 2RF losartan [Cozaar] 100 mg tablet 100 mg PO DAILY metoprolol succinate 25 mg tablet extended release 24 hr 25 mg PO DAILY sucralfate 1 gram tablet 1 g PO TID vitamin [id number] acid 1,000-400 mcg lozenge 1 flaco sublingual DAILY cholecalciferol (vitamin D3) [Vitamin D3] 125 mcg (5,000 unit) tablet 125 mcg PO DAILY magnesium gluconate 500 mg tablet 500 mg PO DAILY Primary Care Provider: Hammad Armenta Referrals: Hitesh Melton MD [Med Staff - [facility]] - 3-5 Days Print Language: Irish Disposition Disposition: Home, Self Care
[2024-11-28 17:48] LABS: Hematocrit 41.3 % (37-47); Hemoglobin 14.1 g/dL (12.0-15.0); Immature Granulocytes Count 0.040 X10^3/uL (0.0-0.0); Mean Corp Hgb Conc 34.1 g/dL (32-36); Mean Corpuscular Volume 93.4 fL (81-99); Mean Platelet Vol. 10.8 fl (6.2-12.0); NRBC Flagged by Analyzer 0 % (0-5); Platelet Count 280 K/mm3 (150-450); RBC Distribution Width CV 17.9 % (11.6-14.6); RBC Distribution Width SD 61.3 fl (35.1-43.9); Red Blood Count 4.42 M/mm3 (4.2-5.4); White Blood Count 10.8 K/mm3 (4.4-11.0)
[2024-11-28 18:11] LABS: Anion Gap 14 (5-15); BUN 12 mg/dL (4-19); BUN/Creat Ratio 19.5 RATIO (10-20); Calcium,Total 10.3 mg/dL (7.6-11.0); Carbon Dioxide 21.3 mmol/L (21.0-32.0); Chloride 105 mmol/L (98-108); Estimated Creatinine Clearance 53.62 ml/min (50-250); Glucose 100 mg/dL (70-99); Potassium 4.6 mmol/L (3.3-5.1)
[2024-11-28 18:45] VITALS: BP 149/90; PULSE 88; RESP 16; TEMP 36.3; O2SAT 97
== END 2024-11-28 18:55 | disposition home or self-care (01) ==
PROVIDERS: Emergency Provider Emergency Medicine; PCP Student in an Organized Health Care Education/Training Program; Visit Provider Emergency Medicine
DX: M25.552 Pain in left hip (principal); E11.9 Type 2 diabetes mellitus without complications; M25.512 Pain in left shoulder; K08.89 Other specified disorders of teeth and supporting structures; I10 Essential (primary) hypertension; E78.5 Hyperlipidemia, unspecified; F17.210 Nicotine dependence, cigarettes, uncomplicated; Z79.02 Long term (current) use of antithrombotics/antiplatelets; Z79.899 Other long term (current) drug therapy; Z86.73 Personal history of transient ischemic attack (TIA), and cerebral infarction without residual deficits
CPT/HCPCS: 80048; 85025; 99283